=== PATIENT | female | born 1940 | race Caucasian/White ===

== ENCOUNTER 2020-06-21 20:00 | Outpatient (CLI) | payer MEDICARE, MEDICAID, SELFPAY | END 2020-06-21 20:01 | disposition home or self-care (01) | LOC: SLEEP 06-22 11:40 | PROVIDERS: Family Provider Family Medicine; Visit Provider Nurse Practitioner | DX: G47.33 Obstructive sleep apnea (adult) (pediatric) (principal) | CPT/HCPCS: 95810 ==

== ENCOUNTER 2020-08-13 16:04 | Emergency (ER) | payer MEDICARE, MEDICAID, SELFPAY ==
[2020-08-13 16:18] VITALS: BP 159/95; PULSE 72; RESP 14; TEMP 36.6; O2SAT 97; BMI 47.7
[2020-08-13 18:04] VITALS: BP 172/75; PULSE 68; PULSE 73; RESP 18; O2SAT 99
--- NOTE | 2020-08-13 18:30 | W.ED.EXTPRO ---
HPI - Extremity Problem General: Chief complaint: Extremity Problem,Nontraumatic Stated complaint: BILATERAL LEG SWELLING Time Seen by Provider: 08/13/20 18:25 History of Present Illness: HPI Narrative: 89-year-old female patient presents to the emergency department with several week onset of bilateral lower extremity edema with redness, she now reports little blisters that have formed to the lower legs. She reports placed on oxygen approximately 6 months ago due to low oxygen level. Recently seen by her primary care provider recently started on metformin. She reports leg elevation helps, swelling resolves. She denies fever chills, denies complaints of chest pain, reports increased shortness of breath past several weeks. MD Complaint: extremity pain and extremity swelling Onset (ago): week(s) (2) Pain Consistency: intermittent Location: lower extremity Quality: aching Radiation: none Relieving factors: elevation Exacerbating factors: weight bearing and walking Associated symptoms: Reports short of breath; Deny chest pain, fever(s) or rash Review of Systems General: Reports: 10 or more systems reviewed and unremarkable except in HPI and below Const: Denies: fever(s), chills or diaphoresis Eyes: Denies: blurry vision or eye redness ENMT: Denies: throat pain, dental pain or disequilibrium Card: Reports: swelling of feet/ankles, dyspnea on exertion and orthopnea; Denies: chest pain, palpitations or irregular heart rhythm Resp: Reports: dyspnea and non-productive cough (chronic); Denies: productive cough or wheezing GI: Denies: abdominal pain, nausea or vomiting : Denies: difficulty voiding or dysuria Musc: Denies: back pain Skin/Breast: Denies: rash or pruritus Neuro: Denies: headache(s), weakness in extremities or behavioral changes Tony/Lymph: Denies: easy bruising Physical Exam Const: COMMON NORMALS: patient oriented x3 and alert EXAM LIMITATIONS: physical limitations (morbid obesity) GENERAL APPEARANCE: cooperative, frail appearing and well hydrated NUTRITIONAL APPEARANCE: obese ORIENTATION/CONSCIOUSNESS: Yes awake, Yes oriented to person and Yes oriented to place HENMT: COMMON NORMALS: normocephalic, Normal external nose present and moist oral mucous membranes HEAD & SCALP: normocephalic FACE & SINUS: normal facial exam NOSE: Normal external nose present Eye: COMMON NORMALS: Equal, round and reactive pupils present and EOMs intact bilaterally GENERAL EYE: appearance normal, both eyes and all related structures PUPIL: Yes Equal, round and reactive pupils present Neck/C-Spine: COMMON NORMALS: full ROM and no lymphadenopathy GENERAL: Yes normal visual inspection and Yes trachea midline CERVICAL SPINE: Yes cervical ROM normal Lymph: LYMPHATIC: no lymphadenopathy noted Chest: COMMONS NORMALS: normal inspection of the chest Resp: COMMON NORMALS: clear to auscultation bilaterally EFFORT & INSPECTION: Yes able to speak in complete sentences, Yes symmetric chest movement and Yes tachypneic AUSCULTATION: clear to auscultation bilaterally and diminished lung sounds bilateral Cardio: COMMON NORMALS: regular rhythm, S1 normal heart sound present and S2 normal heart sound present RHYTHM: regular rhythm HEART SOUNDS: S1 normal heart sound present and S2 normal heart sound present GI: COMMON NORMALS: Soft to palpation and non-tender INSPECTION: Yes normal to inspection PALPATION: Yes Soft to palpation : COMMON NORMALS: Yes no CVA tenderness BLADDER/KIDNEY EXAM: Yes no CVA tenderness Back/Pelvis: COMMON NORMALS: no CVA tenderness and thoracic and lumbar spine normal to inspection Extremity: COMMON NORMALS: normal to inspection and capillary refill normal GENERAL: Yes normal exam except as noted RIGHT LOWER EXTREMITY: Yes lower leg (erythema with small pustules - negative wheeping) LEFT LOWER EXTREMITY: Yes lower leg Left lower leg: Yes inspection (erythema with small pustules, negative wheeping) Neuro: COMMON NORMALS: patient oriented x3 and no focal motor deficits SENSORIUM/ORIENTATION: Yes alert, Yes oriented to person and Yes oriented to place Psych: COMMON NORMALS: mental status grossly normal, Normal thought process present and cooperative ACTIVITY/MOTOR BEHAVIOR: Yes appropriate eye contact THOUGHT PROCESS: Normal thought process present Skin: COMMON NORMALS: no rashes or lesions noted and turgor normal GENERAL SKIN EXAM: no rashes or lesions noted and turgor normal Course ED course: 79-year-old female patient presents to the emergency department with bilateral lower extremity edema and erythema. Chest x-ray revealed vascular congestion, she was administered 40 mg of Lasix IV with 2000 cc diuresed. BNP was normal, cardiac enzymes did not reveal elevation on delta. White blood count was 11.2 thousand, slight hypo-natremia and hypo-chloride anemia noted prior to Lasix administration. EKG without acute abnormalities, she reports is hungry upon exam, agrees to keep her bilateral lower extremities elevated, she agrees to follow-up with her primary care physician this week for reevaluation. She remains on doxycycline for rosacea. Doxycycline on hold until completion of cephalexin. Patient was educated on necessity to keep legs elevated and low-sodium diet. Vital Signs: Vital signs: Vital Signs Temperature 97.8 F 08/13/20 16:18 Pulse Rate 69 08/13/20 19:03 Respiratory Rate 22 H 08/13/20 19:03 Blood Pressure 172/75 08/13/20 19:03 Pulse Oximetry 98 08/13/20 19:03 MDM - Extremity (Nontraumatic) Lab Data: Labs: Lab Results 08/13/20 08/13/20 08/13/20 Range/Units 08:43 18:53 18:53 WBC 11.2 H (4.0-10.0) 10^3/ uL RBC 5.02 (4.1-5.3) 10^6/u L Hgb 14.5 (11.5-15.3) g/dL Hct 46.9 (37.0-47.0) % MCV 93.4 (81-99) fL MCH 28.9 (28.0-34.0) pg MCHC 30.9 (30.0-36.0) g/dL RDW 13.2 (12.1-15.1) % Plt Count 374 (130-400) 10^3/c mm MPV 10.5 H (7.4-10.4) fL Neut % (Auto) 65.9 % Lymph % (Auto) 21.0 % [place] % (Auto) 9.9 % Eos % (Auto) 1.8 % Baso % (Auto) 0.7 % Neut # (Auto) 7.35 (1.8-7.7) 10^3/u L Lymph # (Auto) 2.3 (0.8-4.8) 10^3/u L [place] # (Auto) 1.1 H (0.2-0.9) 10^3/u L Eos # (Auto) 0.2 (0.0-0.8) 10^3/u L Baso # (Auto) 0.1 (0.0-0.1) 10^3/u L Nucleated RBC % (a uto) 0 % Nucleated RBCs # 0.0 /100WBC PT 12.70 (12.1-14.9) SECO NDS INR 0.95 (0.8-1.2) Sodium (136-145) mmol/L Potassium (3.5-5.1) mmol/L Chloride (98-107) mmol/L Carbon Dioxide (22-29) mmol/L Anion Gap (5-19) BUN (8-23) mg/dL Creatinine (0.5-0.9) mg/dL GFR Calculation Glucose (65-115) mg/dL Calculated Osmolal ity (285-295) mOsm/k g Calcium (8.5-10.5) mg/dL Total Bilirubin (0.15-1.2) mg/dL AST (0-32) U/L ALT (0-33) U/L Alkaline Phosphata se (35-105) IU/L Troponin T Baselin e (0-10) ng/L Troponin T 120 Min [place] (0-10) ng/L Delta Troponin T (0-10) ABS# NT-Pro-B Natriuret Pep (0-450) pg/mL Total Protein (6.6-8.7) g/dL Albumin (3.5-5.2) g/dL Globulin (1.3-4.6) g/dL Urine Color Yellow (Yellow) Urine Appearance Cloudy (CLEAR) Urine pH 7 (5-7) Ur Specific Gravit y 1.015 (1.005-1.030) Urine Protein Neg (Negative) Urine Glucose (UA) Norm (Normal) Urine Ketones Negative (Negative) Urine Blood Neg (Negative) Urine Nitrate Negative (Negative) Urine Bilirubin Neg (Negative) Urine Urobilinogen Norm (Negative) mg/dL Ur Leukocyte Cass[place] a[place] Trace H (Negative) Urine RBC Rare (0-2) /hpf Urine WBC Rare (0-5) /hpf Ur Squamous Epith Cells Rare (0-5) /hpf Amorphous Sediment Not Reportable Urine Bacteria 1+ H (NONE) /hpf 08/13/20 08/13/20 08/13/20 Range/Units 18:53 18:53 21:23 WBC (4.0-10.0) 10^3/ uL RBC (4.1-5.3) 10^6/u L Hgb (11.5-15.3) g/dL Hct (37.0-47.0) % MCV (81-99) fL MCH (28.0-34.0) pg MCHC (30.0-36.0) g/dL RDW (12.1-15.1) % Plt Count (130-400) 10^3/c mm MPV (7.4-10.4) fL Neut % (Auto) % Lymph % (Auto) % [place] % (Auto) % Eos % (Auto) % Baso % (Auto) % Neut # (Auto) (1.8-7.7) 10^3/u L Lymph # (Auto) (0.8-4.8) 10^3/u L [place] # (Auto) (0.2-0.9) 10^3/u L Eos # (Auto) (0.0-0.8) 10^3/u L Baso # (Auto) (0.0-0.1) 10^3/u L Nucleated RBC % (a uto) % Nucleated RBCs # /100WBC PT (12.1-14.9) SECO NDS INR (0.8-1.2) Sodium 131 L (136-145) mmol/L Potassium 4.6 (3.5-5.1) mmol/L Chloride 90 L (98-107) mmol/L Carbon Dioxide 29 (22-29) mmol/L Anion Gap 16.6 (5-19) BUN 17 (8-23) mg/dL Creatinine 0.7 (0.5-0.9) mg/dL GFR Calculation Not Reportable Glucose 142 H (65-115) mg/dL Calculated Osmolal ity 271 L (285-295) mOsm/k g Calcium 10.1 (8.5-10.5) mg/dL Total Bilirubin 0.5 (0.15-1.2) mg/dL AST 23 (0-32) U/L ALT 17 (0-33) U/L Alkaline Phosphata se 95 (35-105) IU/L Troponin T Baselin e 18 H (0-10) ng/L Troponin T 120 Min [place] 17.74 H (0-10) ng/L Delta Troponin T -0.26 L (0-10) ABS# NT-Pro-B Natriuret Pep 147 (0-450) pg/mL Total Protein 6.9 (6.6-8.7) g/dL Albumin 4.1 (3.5-5.2) g/dL Globulin 2.8 (1.3-4.6) g/dL Urine Color (Yellow) Urine Appearance (CLEAR) Urine pH (5-7) Ur Specific Gravit y (1.005-1.030) Urine Protein (Negative) Urine Glucose (UA) (Normal) Urine Ketones (Negative) Urine Blood (Negative) Urine Nitrate (Negative) Urine Bilirubin (Negative) Urine Urobilinogen (Negative) mg/dL Ur Leukocyte Cassy ase (Negative) Urine RBC (0-2) /hpf Urine WBC (0-5) /hpf Ur Squamous Epith Cells (0-5) /hpf Amorphous Sediment Urine Bacteria (NONE) /hpf Imaging Data^: Other Xray: Radiologist's impression: [place] [address] XRay Report Signed Patient: Camryn Bocanegra #: [id number] : 1940Acct#:[id number] Age/Sex: 79 / FADM Date: 08/13/20 Loc: ERRoom/Bed: Attending Dr: Ordering Provider/Ordering MD: Terrie Biswas Date of Service: 08/13/20 Procedure(s): XR chest 1V portable [id number] Accession Number(s): [id number] Report Number: [id number] WS: [id number] EXAM: AP CHEST: PORTABLE UPRIGHT DATE OF EXAM: 08/13/2020, 1839 hours COMPARISON: NONE HISTORY: Patient is 79 years old with shortness of breath and occasional cough. FINDINGS: The cardiac silhouette is slightly enlarged. The mediastinal contours are normal. The pulmonary vascularity is prominent. How much of this has to do with body habitus is uncertain. Not convinced of definite pulmonary edema. Some patchy infiltrate in the left mid and lower chest. Right lung appears clear. There is no effusion or pneumothorax. No acute bony abnormality is seen. Surgical clips in the left axillary region. XR/XR chest 1V portable [id number] IMPRESSION: Pulmonary vascular congestion. Patchy infiltrate left mid and lower chest. Dictated By:Jose Alfredo Washington MD Signed By:Jose Alfredo Washington MDSigned Date/Time:08/13/201900 DD/ 1859 EKG Data^: EKG 1: EKG interpretation date: 08/13/20 EKG interpretation time: 21:49 Other EKG comments: Sinus rhythm with occasional ventricular premature complexes, incomplete right bundle branch block, left ventricular hypertrophy, possible anterior myocardial infarction, probable old, abnormal EKG Discharge Plan Discharge Patient Disposition: Home Clinical Impression: Pulmonary vascular congestion, Leg edema Cellulitis Qualifiers: Site of cellulitis: extremity Site of cellulitis of extremity: lower extremity Laterality: unspecified laterality Qualified Code(s): L03.119 - Cellulitis of unspecified part of limb Condition: Stable Prescriptions: New furosemide 40 mg tablet 40 mg PO DAILY Qty: 3 RF: 0 Held doxycycline hyclate 100 mg capsule 100 mg PO DAILY RF: 0 Hold Instructions: Resume on 08/24/20. hold while taking Keflex Discontinued ibuprofen 800 mg tablet 800 mg PO TID RF: 0 No Action Multiple Vitamins Tablet 1 tab PO DAILY RF: 0 Vitamin B-12 1,000 mcg Tablet 1,000 mcg PO DAILY RF: 0 aspirin 81 mg Tablet,Delayed Release (Dr/Ec) 81 mg PO DAILY RF: 0 Tylenol Extra Strength 500 mg Tablet 500 - 1,000 mg PO PRN RF: 0 Benadryl 25 mg Capsule See Rx Instructions .ROUTE .COMPLEX RF: 0 Nitrostat 0.4 mg Tablet, Sublingual 0.4 mg SUBLINGUAL Q5M PRN (Reason: Chest Pain) RF: 0 Vitamin D3 25 mcg (1,000 unit) Tablet 25 mcg PO DAILY RF: 0 Stool Softener 2 cap PO BID RF: 0 scacbtl-lcufbprxv-yfql 1 tab PO DAILY RF: 0 metformin 500 mg tablet 500 mg PO QPM RF: 0 metoprolol succinate 50 mg tablet extended release 24 hr 50 mg PO DAILY RF: 0 potassium chloride 10 mEq tablet extended release 10 meq PO BID RF: 0 chlorthalidone 25 mg tablet 25 mg PO DAILY RF: 0 oxybutynin chloride 5 mg tablet 5 mg PO QID RF: 0 losartan 100 mg tablet 100 mg PO DAILY RF: 0 Discharge Orders: Discharge Order (Routine); Ordered 08/13/20 Ordered By: Terrie Biswas Referrals: Owen Kee Jr, MD [Family Provider] - Discharge Diet: Cardiac Discharge Activity: Limit activity as instructed Patient Instructions: Cellulitis (ED), Leg Edema (ED) Activity Restrictions/Additional Instructions: Follow-up with your primary care physician in 3 to 4 days Take Lasix 40 mg daily for 3 days, this will increase her urine output, may cause urinary incontinence Increase potassium to 10 mEq twice daily due to Lasix use Hold doxycycline until cephalexin has been completed Keep legs elevated at all times, this will help to decrease swelling Blister formation will resolve as the swelling goes down Return to the emergency department if you develop fever, chest pain, worsening shortness of breath Coding Level of Care Code ED Imaging Clerk for [facility] Exam Comprehensive
--- NOTE | 2020-08-13 18:32 | XR_ITS ---
WS: [id number] EXAM: AP CHEST: PORTABLE UPRIGHT DATE OF EXAM: 08/13/2020, 1839 hours COMPARISON: NONE HISTORY: Patient is 79 years old with shortness of breath and occasional cough. FINDINGS: The cardiac silhouette is slightly enlarged. The mediastinal contours are normal. The pulmonary vascularity is prominent. How much of this has to do with body habitus is uncertain. Not convinced of definite pulmonary edema. Some patchy infiltrate in the left mid and lower chest. Right lung appear s clear. There is no effusion or pneumothorax. No acute bony abnormality is seen. Surgical clips i n the left axillary region. XR/XR chest 1V portable [id number] IMPRESSION: Pulmonary vascular congestion. Patchy infiltrate left mid and lower chest.
[2020-08-13 19:03] VITALS: BP 172/75; PULSE 69; RESP 22; O2SAT 98
--- NOTE | 2020-08-13 20:38 | ECG_ITS ---
[facility] Test Date: 2020-08-13 Pat Name: Camryn Bocanegra Department: Room: Gender: Female Strategy Manager: : 1940 Requested By: Terrie Tracy Order Number: [id number] Evan MD: Leatha Gonzalez M.D. Measurements Intervals [place] Rate: 70 P: 48 VT: 158 QRS: -24 QRSD: 96 T: 29 QT: 387 QTc: 418 Interpretive Statements SINUS RHYTHM WITH OCCASIONAL VENTRICULAR PREMATURE COMPLEXES LOW QRS VOLTAGE IN PRECORDIAL LEADS [QRS DEFLECTION < 1.0 mV IN CHEST LEADS] INCOMPLETE RIGHT BUNDLE BRANCH BLOCK [90+ ms QRS DURATION, TERMINAL R IN V1/V2, 40+ ms S IN I/aVL/V4/V5/V6] LEFT VENTRICULAR HYPERTROPHY AND ST-T CHANGE [VOLTAGE CRITERIA PLUS ST/T ABNORMALITY] POSSIBLE ANTERIOR MYOCARDIAL INFARCTION , PROBABLY OLD [30 ms Q WAVE IN V3/V4, OR R < 0.2 mV IN V4] No previous ECG available for comparison Electronically Signed On 08-14-2020 14:49:39 CDT by Leatha Gonzalez M.D. [email or web address]
[2020-08-13] MEDS: FUROsemide 10 mg/mL SDV 4mL 40 MG IVP (20:58)
[2020-08-13 21:08] LABS: Basophils # 0.1 10^3/uL (0.0-0.1); Basophils % 0.7 %; Eosinophils # 0.2 10^3/uL (0.0-0.8); Eosinophils % 1.8 %; Hematocrit 46.9 % (37.0-47.0); Hemoglobin 14.5 g/dL (11.5-15.3); Lymphocytes # 2.3 10^3/uL (0.8-4.8); Mean Corpuscular HGB Conc 30.9 g/dL (30.0-36.0); Mean Corpuscular Hemoglobin 28.9 pg (28.0-34.0); Mean Corpuscular Volume 93.4 fL (81-99); Mean Platelet Volume 10.5 fL (7.4-10.4); Monocytes # 1.1 10^3/uL (0.2-0.9); Monocytes % 9.9 %; Neutrophils # 7.35 10^3/uL (1.8-7.7); Neutrophils % 65.9 %; Nucleated Red Blood Cells % 0 %; Platelet Count 374 10^3/cmm (130-400); Red Blood Count 5.02 10^6/uL (4.1-5.3); Red Cell Distribution Width 13.2 % (12.1-15.1); White Blood Count 11.2 10^3/uL (4.0-10.0)
[2020-08-13 21:32] LABS: Troponin(5th) Baseline 18 ng/L (0-10)
[2020-08-13 21:41] LABS: Alanine Aminotransferase 17 U/L (0-33); Albumin Level 4.1 g/dL (3.5-5.2); Alkaline Phosphatase 95 IU/L (35-105); Aspartate Amino Transferase 23 U/L (0-32); Blood Urea Nitrogen 17 mg/dL (8-23); Calcium 10.1 mg/dL (8.5-10.5); Carbon Dioxide 29 mmol/L (22-29); Chloride 90 mmol/L (98-107); Globulin 2.8 g/dL (1.3-4.6); Glucose 142 mg/dL (65-115); NT Pro B Type Natriuretic Pept 147 pg/mL (0-450); Osmolality Calculated 271 mOsm/kg (285-295); Sodium 131 mmol/L (136-145); Total Bilirubin 0.5 mg/dL (0.15-1.2); Total Protein 6.9 g/dL (6.6-8.7)
[2020-08-13 21:43] LABS: Anion Gap 16.6 (5-19); Potassium 4.6 mmol/L (3.5-5.1)
[2020-08-13 21:52] LABS: Troponin 5 2HR 17.74 ng/L (0-10)
[2020-08-13 21:57] LABS: Troponin 5 2HR Delta -0.26 ABS# (0-10)
[2020-08-13 21:59] LABS: INR 0.95 (0.8-1.2)
[2020-08-13] MEDS: acetaminophen 500 mg Tablet 1000 MG PO (22:13)
[2020-08-13 22:35] LABS: Add Urine Microscopic? YES; Bacteria Urine 1+ /hpf; Bilirubin Urine Neg (Negative); Blood Urine Neg (Negative); Glucose Urine UA Norm (Normal); Ketones Urine Negative (Negative); Leukocyte Esterase Urine Trace (Negative); Nitrate Urine Negative (Negative); Protein Urine Neg (Negative); RBC Urine RARE /hpf (0-2); Specific Gravity, Urine 1.015 (1.005-1.030); Squamous Epithelial Cell Urine RARE /hpf (0-5); Urine Appearance Cloudy (CLEAR); Urine Color Yellow (Yellow); Urobilinogen Urine Norm (Negative); WBC Urine RARE /hpf (0-5); pH Urine 7 (5-7)
[2020-08-13] MEDS: cephALEXin 500 mg Capsule PO (23:10)
[2020-08-14 04:14] VITALS: BP 147/65; PULSE 78; RESP 18; O2SAT 96
== END 2020-08-13 23:45 | disposition home or self-care (01) ==
PROVIDERS: Emergency Medicine; Emergency Provider Nurse Practitioner Family; Family Provider Family Medicine
DX: R60.0 Localized edema (principal); L03.119 Cellulitis of unspecified part of limb; Z79.82 Long term (current) use of aspirin; R09.89 Other specified symptoms and signs involving the circulatory and respiratory systems
CPT/HCPCS: 12345; 71045; 80053; 81001; 83880; 84484; 85025; 85610; 93005; 96374; 99283; 99284; J1940

== ENCOUNTER 2020-08-25 19:54 | Emergency (ER) | payer MEDICARE, MEDICAID, SELFPAY ==
[2020-08-25 20:09] VITALS: BP 153/72; PULSE 77; RESP 14; TEMP 36.9; O2SAT 95; BMI 48.5
--- NOTE | 2020-08-25 20:38 | W.ED.EXTPRO ---
HPI - Extremity Problem General: Chief complaint: Extremity Problem,Nontraumatic Stated complaint: cellulitis/on back left leg Time Seen by Provider: 08/25/20 20:17 History of Present Illness: HPI Narrative: Patient is a 79-year-old female comes to the ED with cellulitis on back of right leg and bilateral leg edema. Bilateral leg edema cellulitis started on August 03. Patient was seen here in the ED August 13 for same complaint. She was on doxycycline for cellulitis but yesterday her wound culture came back and told her to stop doxycycline and put her on ciprofloxacin. Patient says she just started taking the ciprofloxacin within the last 24 hours. She says she is also been seen by the edema. Patient says the sore on the posterior side of her right lower leg has gone patient is itching out clear and yellow puslike fluid on occasion. Patient says cellulitis does cause some pain in her legs and she took Tylenol before coming to the ED. Associated symptoms: Deny chest pain, fever(s) or rash Review of Systems Const: Denies: fever(s), chills or fatigue Eyes: Denies: change in vision or eye discomfort ENMT: Denies: throat pain, odynophagia, nasal discharge or nasal congestion Card: Denies: chest pain, palpitations, edema, swelling of feet/ankles, dyspnea on exertion or orthopnea Resp: Denies: dyspnea, productive cough or non-productive cough GI: Denies: abdominal pain, nausea, vomiting, diarrhea, constipation or hematochezia : Denies: flank pain, dysuria or hematuria Musc: Denies: neck pain, back pain or extremity swelling Skin/Breast: Reports: erythema, skin tenderness, sores and new lesions; Denies: rash Neuro: Denies: headache(s), numbness in extremities or weakness in extremities Physical Exam Const: COMMON NORMALS: no acute distress and patient oriented x3 GENERAL APPEARANCE: cooperative and comfortable HENMT: COMMON NORMALS: normocephalic HEAD & SCALP: normocephalic MOUTH: Normal oral and palatal mucosa present THROAT: posterior oropharynx normal and uvula midline Neck/C-Spine: COMMON NORMALS: supple GENERAL: Yes normal visual inspection Resp: COMMON NORMALS: normal respiratory effort, No retractions, No use of accessory muscles and clear to auscultation bilaterally AUSCULTATION: clear to auscultation bilaterally Cardio: COMMON NORMALS: regular rate, regular rhythm, S1 normal heart sound present, S2 normal heart sound present, No gallops present (Cardio), No clicks present (Cardio), No murmurs present (Cardio) and Peripheral pulses 2+ throughout RATE: regular rate RHYTHM: regular rhythm HEART SOUNDS: S1 normal heart sound present and S2 normal heart sound present PERIPHERAL PULSES: Peripheral pulses 2+ throughout and dorsalis pedis present positive bilateral 1+ GI: COMMON NORMALS: Normal to inspection, nondistended, normoactive bowel sounds present, Soft to palpation, non-tender and no masses PALPATION: Yes Soft to palpation : COMMON NORMALS: Yes no CVA tenderness BLADDER/KIDNEY EXAM: Yes no CVA tenderness Back/Pelvis: COMMON NORMALS: no CVA tenderness Extremity: NARRATIVE EXTREMITY EXAM: Bilateral 2+ pitting edema. Right lower extremity has erythema, warmth, tenderness and blisterlike lesion on posterior aspect of calf that is oozing clear purulent drainage. Patient appears to have cellulitis. GENERAL: Yes edema (2+ pitting edema of lower extremity bilaterally.) Neuro: COMMON NORMALS: patient oriented x3 and moves all extremities Skin: NARRATIVE SKIN EXAM: Bilateral 2+ pitting edema. Right lower extremity has erythema, warmth, tenderness and blisterlike lesion on posterior aspect of calf that is oozing clear purulent drainage. Patient appears to have cellulitis. GENERAL SKIN EXAM: dry skin Course Vital Signs: Vital signs: Vital Signs Temperature 98.4 F 08/25/20 20:09 Pulse Rate 64 08/25/20 23:03 Respiratory Rate 18 08/25/20 23:03 Blood Pressure 120/74 08/25/20 23:03 Pulse Oximetry 98 08/25/20 23:03 MDM - Extremity (Nontraumatic) MDM Narrative: Medical decision making narrative: Patient is a 79-year-old female comes to the ED with right lower extremity pain and cellulitis. Patient has been dealing with this complaint since August 03 and was taking doxycycline previously and just got switched to ciprofloxacin within the last 24 hours due to wound culture and susceptibility results. Physical exam shows cellulitis of the right lower extremity with 2+ pitting edema and lower extremities bilaterally. White blood cell count 10.6. Patient was given IV vancomycin while here in the ED and I placed an order with case management for patient to be referred to wound care clinic. Patient was discharged after IV vanc and told to continue taking previously prescribed ciprofloxacin. I told patient that case management should be contacting them in the next several days to set up an appointment with wound care clinic. Return to ED precautions given. Patient understood and agreed with plan. Lab Data: Attestation: I reviewed the patient's lab results. Labs: Lab Results 08/25/20 08/25/20 Range/Units 21:03 21:03 WBC 10.6 H (4.0-10.0) 10^3/ uL RBC 4.82 (4.1-5.3) 10^6/u L Hgb 14.2 (11.5-15.3) g/dL Hct 45.6 (37.0-47.0) % MCV 94.6 (81-99) fL MCH 29.5 (28.0-34.0) pg MCHC 31.1 (30.0-36.0) g/dL RDW 13.5 (12.1-15.1) % Plt Count 371 (130-400) 10^3/c mm MPV 9.9 (7.4-10.4) fL Neut % (Auto) 68.0 % Lymph % (Auto) 17.1 % [place] % (Auto) 11.0 % Eos % (Auto) 2.5 % Baso % (Auto) 0.8 % Neut # (Auto) 7.22 (1.8-7.7) 10^3/u L Lymph # (Auto) 1.8 (0.8-4.8) 10^3/u L [place] # (Auto) 1.2 H (0.2-0.9) 10^3/u L Eos # (Auto) 0.3 (0.0-0.8) 10^3/u L Baso # (Auto) 0.1 (0.0-0.1) 10^3/u L Nucleated RBC % (a uto) 0 % Nucleated RBCs # 0.0 /100WBC Sodium 136 (136-145) mmol/L Potassium 4.0 (3.5-5.1) mmol/L Chloride 92 L (98-107) mmol/L Carbon Dioxide 36 H (22-29) mmol/L Anion Gap 12.0 (5-19) BUN 28 H (8-23) mg/dL Creatinine 1.0 H (0.5-0.9) mg/dL GFR Calculation Not Reportable Glucose 187 H (65-115) mg/dL Calculated Osmolal ity 292 (285-295) mOsm/k g Calcium 10.0 (8.5-10.5) mg/dL Total Bilirubin 0.4 (0.15-1.2) mg/dL AST 20 (0-32) U/L ALT 19 (0-33) U/L Alkaline Phosphata se 89 (35-105) IU/L Total Protein 7.1 (6.6-8.7) g/dL Albumin 4.0 (3.5-5.2) g/dL Globulin 3.1 (1.3-4.6) g/dL Discharge Plan Discharge Patient Disposition: Home Clinical Impression: Lower extremity edema Cellulitis Qualifiers: Site of cellulitis: extremity Site of cellulitis of extremity: lower extremity Laterality: right Qualified Code(s): L03.115 - Cellulitis of right lower limb Condition: Stable Prescriptions: No Action Multiple Vitamins Tablet 1 tab PO DAILY RF: 0 Vitamin B-12 1,000 mcg Tablet 1,000 mcg PO DAILY RF: 0 aspirin 81 mg Tablet,Delayed Release (Dr/Ec) 81 mg PO DAILY RF: 0 Tylenol Extra Strength 500 mg Tablet 500 - 1,000 mg PO PRN RF: 0 Benadryl 25 mg Capsule See Rx Instructions .ROUTE .COMPLEX RF: 0 Nitrostat 0.4 mg Tablet, Sublingual 0.4 mg SUBLINGUAL Q5M PRN (Reason: Chest Pain) RF: 0 Vitamin D3 25 mcg (1,000 unit) Tablet 25 mcg PO DAILY RF: 0 Stool Softener 2 cap PO BID RF: 0 isyfrva-dxrnwbmcp-mios 1 tab PO DAILY RF: 0 metformin 500 mg tablet 500 mg PO QPM RF: 0 doxycycline hyclate 100 mg capsule 100 mg PO DAILY RF: 0 Hold Instructions: Resume on 08/24/20. hold while taking Keflex metoprolol succinate 50 mg tablet extended release 24 hr 50 mg PO DAILY RF: 0 potassium chloride 10 mEq tablet extended release 10 meq PO BID RF: 0 chlorthalidone 25 mg tablet 25 mg PO DAILY RF: 0 oxybutynin chloride 5 mg tablet 5 mg PO QID RF: 0 losartan 100 mg tablet 100 mg PO DAILY RF: 0 furosemide 40 mg tablet 40 mg PO DAILY Qty: 3 RF: 0 Discharge Orders: Discharge Order (Routine); Ordered 08/25/20 Ordered By: Edwin Colby Referrals: Owen Kee Jr, MD [Primary Care Provider] - Discharge Diet: Regular Discharge Activity: Increase activity as tolerated Patient Instructions: Cellulitis (ED), Leg Edema (ED) Activity Restrictions/Additional Instructions: Follow-up with medical provider as directed in 7 to 10 days. Also case management will be contacting you next several days to set up an appointment with wound care clinic. Continue taking your previously prescribed antibiotic. Elevate legs to help with swelling. Continue all other home meds. Return to the ER or your medical provider if condition worsens. Please read and understand discharge instructions. If any questions, please ask. Discharge Date/Time: 08/25/20 23:05 Coding Level of Care Code ED Custodian Blood Bank for [facility] Hart Exam Comprehensive
[2020-08-25 21:24] LABS: Basophils # 0.1 10^3/uL (0.0-0.1); Basophils % 0.8 %; Eosinophils # 0.3 10^3/uL (0.0-0.8); Eosinophils % 2.5 %; Hematocrit 45.6 % (37.0-47.0); Hemoglobin 14.2 g/dL (11.5-15.3); Lymphocytes # 1.8 10^3/uL (0.8-4.8); Lymphocytes % 17.1 %; Mean Corpuscular HGB Conc 31.1 g/dL (30.0-36.0); Mean Corpuscular Hemoglobin 29.5 pg (28.0-34.0); Mean Corpuscular Volume 94.6 fL (81-99); Mean Platelet Volume 9.9 fL (7.4-10.4); Monocytes # 1.2 10^3/uL (0.2-0.9); Neutrophils # 7.22 10^3/uL (1.8-7.7); Nucleated Red Blood Cells % 0 %; Platelet Count 371 10^3/cmm (130-400); Red Blood Count 4.82 10^6/uL (4.1-5.3); Red Cell Distribution Width 13.5 % (12.1-15.1); White Blood Count 10.6 10^3/uL (4.0-10.0)
[2020-08-25 22:04] LABS: Alanine Aminotransferase 19 U/L (0-33); Alkaline Phosphatase 89 IU/L (35-105); Aspartate Amino Transferase 20 U/L (0-32); Blood Urea Nitrogen 28 mg/dL (8-23); Carbon Dioxide 36 mmol/L (22-29); Chloride 92 mmol/L (98-107); Globulin 3.1 g/dL (1.3-4.6); Glucose 187 mg/dL (65-115); Osmolality Calculated 292 mOsm/kg (285-295); Sodium 136 mmol/L (136-145); Total Bilirubin 0.4 mg/dL (0.15-1.2); Total Protein 7.1 g/dL (6.6-8.7)
[2020-08-25] MEDS: HYDROcodone-acetaminophen 5-325 mg Tablet 1 TAB PO (22:23)
[2020-08-25] MEDS: acetaminophen 325 mg Tablet 650 MG PO (22:24)
[2020-08-25 23:03] VITALS: BP 120/74; PULSE 64; RESP 18; O2SAT 98
--- NOTE | 2020-08-27 10:41 | DCPLANNER ---
district manager in training had message to schedule a follow up appointment for patient with Wound Care. district manager in training called the Wound Care clinic, spoke with Dottie, a follow up appointment was scheduled for Thursday, August 29, 2020 at 2:30 with Helen Amaya NP. district manager in training called patient and informed patient of the scheduled appointment. Patient stated that she would attend the appointment.
--- NOTE | 2020-09-10 09:37 | DCPLANNER ---
Patient had a follow up appointment scheduled for 08.29.20 with Wound Care - patient did attend appointment.
== END 2020-08-25 23:05 | disposition home or self-care (01) ==
PROVIDERS: Emergency Provider Physician Assistant; PCP Family Medicine
DX: L03.115 Cellulitis of right lower limb (principal); Z79.82 Long term (current) use of aspirin; Z79.84 Long term (current) use of oral hypoglycemic drugs
CPT/HCPCS: 12345; 36415; 80053; 85025; 87040; 96365; 99282; 99283; J3370; J7050

== ENCOUNTER 2020-08-29 14:26 | Outpatient (CLI) | payer MEDICARE, MEDICAID, SELFPAY | END 2020-08-29 14:27 | disposition home or self-care (01) | LOC: WOUND 14:26 | PROVIDERS: PCP Family Medicine; Visit Provider Nurse Practitioner Family | DX: L97.811 Non-pressure chronic ulcer of other part of right lower leg limited to breakdown of skin (principal) | CPT/HCPCS: G0463 ==

== ENCOUNTER 2020-09-05 13:53 | Outpatient (CLI) | payer MEDICARE, MEDICAID, SELFPAY | END 2020-09-05 13:54 | disposition home or self-care (01) | LOC: WOUND 13:54 | PROVIDERS: PCP Family Medicine; Visit Provider Thoracic Surgery (Cardiothoracic Vascular Surgery) | DX: E11.622 Type 2 diabetes mellitus with other skin ulcer (principal); L97.811 Non-pressure chronic ulcer of other part of right lower leg limited to breakdown of skin; L03.115 Cellulitis of right lower limb | CPT/HCPCS: 11042 ==

== ENCOUNTER 2020-09-12 10:52 | Outpatient (CLI) | payer MEDICARE, MEDICAID, SELFPAY | END 2020-09-12 10:53 | disposition home or self-care (01) | LOC: WOUND 10:55 | PROVIDERS: PCP Family Medicine; Visit Provider Nurse Practitioner Family | DX: E11.622 Type 2 diabetes mellitus with other skin ulcer (principal); L97.811 Non-pressure chronic ulcer of other part of right lower leg limited to breakdown of skin | CPT/HCPCS: G0463 ==

== ENCOUNTER 2020-09-19 10:40 | Outpatient (CLI) | payer MEDICARE, MEDICAID, SELFPAY ==
--- NOTE | 2020-09-19 10:46 | USCV_ITS ---
Camryn Bocanegra Age: 80 Gender: F : 1940 Exam Date: 09/19/2020 11:09 Ordering Phys: Helen Amaya Technologist: Deana Harper Exam Location: [facility] [place] Indication: HISTORY: Patient has history of ulcers. PROCEDURES: Bilateral duplex Venous Insufficiency study of the Deep and Superficial systems was carried out according to normal protocol with the patient in supine positon for deep system and dependent position for the superficial system. FINDINGS: There is no evidence of bilateral deep vein thrombosis. No evidence of superficial thrombosis in the bilateral saphenous system. No evidence of reflux was noted in the bilateral deep venous system. No venous reflux noted in the bilateral greater saphenous vein. No venous reflux noted in the bilateral small saphenous vein. Right GSV became to small to follow at the mid level. CONCLUSIONS No evidence of DVT in the above-mentioned identifiable veins. No significant venous reflux either in the superficial or deep venous system. The right greater saphenous vein at the distal segment and below-knee level were found to be extremely small, difficult to follow Dr Lacie Rockwell MD [facility] (Electronically Signed) Final Date: 20 September 2020 16:31 S
== END 2020-09-19 10:41 | disposition home or self-care (01) ==
LOC: US 10:44
PROVIDERS: PCP Nurse Practitioner; Visit Provider Nurse Practitioner Family
DX: L98.499 Non-pressure chronic ulcer of skin of other sites with unspecified severity (principal); M79.605 Pain in left leg; M79.604 Pain in right leg
CPT/HCPCS: 93970

== ENCOUNTER 2020-09-20 12:20 | Outpatient (CLI) | payer MEDICARE, MEDICAID, SELFPAY ==
--- NOTE | 2020-09-20 12:45 | USCV_ITS ---
Camryn Bocanegra Age: 80 Gender: F : 1940 Exam Date: 09/20/2020 12:16 Ordering Phys: Helen Amaya Technologist: Erin Vazquez [place] [facility] [place]: NON HEALING ULCER, PAIN, REDNESS RIGHT LEFT Brachial 161.00 mmHg Brachial 149.00 mmHg Pressure (mmHg) Waveform Pressure (mmHg) Waveform 220.00 POWER LINEMAN TECHNICIAN 204.00 220.00 DPA 169.00 Ankle/Brachial Index 1.05 162.00 Pre-Exercise Toe Pressure 175.00 1.01 Pre-Exercise Toe/Brachial Index 1.09 FINDINGS patient did not tolerate full pressure cuffs on legs. CHARLEE/TBI done only due to extreme leg pain with pressure cuffs. Supernormal resting CHARLEE on the right side Normal resting CHARLEE on the left side Normal resting TBIs bilaterally CONCLUSIONS No evidence of any significant arterial obstruction, based on the above findings. Dr Lacie Rockwell MD [facility] (Electronically Signed) Final Date: 20 September 2020 19:52 S
== END 2020-09-20 12:21 | disposition home or self-care (01) ==
PROVIDERS: PCP Nurse Practitioner; Visit Provider Nurse Practitioner Family
DX: L98.499 Non-pressure chronic ulcer of skin of other sites with unspecified severity (principal); M79.605 Pain in left leg; M79.604 Pain in right leg
CPT/HCPCS: 93923

== ENCOUNTER 2020-09-26 10:55 | Outpatient (CLI) | payer MEDICARE, MEDICAID, SELFPAY | END 2020-09-26 10:56 | disposition home or self-care (01) | LOC: WOUND 10:55 | PROVIDERS: PCP Nurse Practitioner; Visit Provider Thoracic Surgery (Cardiothoracic Vascular Surgery) | DX: E11.622 Type 2 diabetes mellitus with other skin ulcer (principal); L97.811 Non-pressure chronic ulcer of other part of right lower leg limited to breakdown of skin; L03.115 Cellulitis of right lower limb | CPT/HCPCS: 97597 ==

== ENCOUNTER 2020-10-03 10:43 | Outpatient (CLI) | payer MEDICARE, MEDICAID, SELFPAY | END 2020-10-03 10:44 | disposition home or self-care (01) | LOC: WOUND 10:44 | PROVIDERS: PCP Nurse Practitioner; Visit Provider Thoracic Surgery (Cardiothoracic Vascular Surgery) | DX: Z09 Encounter for follow-up examination after completed treatment for conditions other than malignant neoplasm (principal) | CPT/HCPCS: 99212; A6545 ==

== ENCOUNTER 2020-10-17 10:54 | Outpatient (CLI) | payer MEDICARE, MEDICAID, SELFPAY | END 2020-10-17 10:55 | disposition home or self-care (01) | LOC: WOUND 10:55 | PROVIDERS: PCP Nurse Practitioner; Visit Provider Nurse Practitioner Family | DX: Z09 Encounter for follow-up examination after completed treatment for conditions other than malignant neoplasm (principal) | CPT/HCPCS: 99212 ==

== ENCOUNTER 2020-10-23 16:06 | Outpatient (CLI) | payer MEDICARE, MEDICAID, SELFPAY | END 2020-10-23 16:07 | disposition home or self-care (01) | LOC: WOUND 16:08 | PROVIDERS: PCP Nurse Practitioner; Visit Provider Nurse Practitioner Family | DX: Z09 Encounter for follow-up examination after completed treatment for conditions other than malignant neoplasm (principal) | CPT/HCPCS: 29581 ==

== ENCOUNTER 2020-10-31 11:06 | Inpatient (IN) | payer MEDICARE, MEDICAID, SELFPAY ==
[2020-10-31] VITALS (14 sets, daily range): BP systolic 88–147; BP diastolic 56–98; PULSE 84–117; RESP 18–32; TEMP 36.4–37; O2SAT 82–98; BMI 47.3
--- NOTE | 2020-10-31 11:19 | ECG_ITS ---
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 Measurements Intervals [place] Rate: 96 P: 55 ID: [id number] QRS: -14 QRSD: 125 T: 27 QT: 362 QTc: 459 Interpretive Statements SINUS RHYTHM WITH OCCASIONAL VENTRICULAR PREMATURE COMPLEXES POSSIBLE RIGHT VENTRICULAR CONDUCTION DELAY [RSR (QR) IN V1/V2] POSSIBLE ANTERIOR MYOCARDIAL INFARCTION , OF INDETERMINATE AGE [30 ms Q WAVE IN V3/V4, OR R < 0.2 mV IN V4] Compared to ECG 08/13/2020 21:44:36 Incomplete right bundle-branch block no longer present Left ventricular hypertrophy no longer present ST (T wave) deviation no longer present Myocardial infarct finding still present Electronically Signed On 10-31-2020 18:21:17 DIRECTOR MEDICAID by Leatha Gonzalez M.D. [id number]
--- NOTE | 2020-10-31 11:19 | XR_ITS ---
WS: [id number] Portable AP upright chest, 10/31/2020 Clinical Data: sob Comparison: Portable chest, 08/13/2020. Findings: The patchy opacities in both lungs remain unchanged. The heart is enlarged. The aortic arch and descending aorta show calcification and tortuosity. No pneumothorax is present. There are radiop aque clips in the left axilla. There are monitor leads on the chest wall. XR/XR chest 1V portable [id number] Impression: 1. Bilateral patchy opacities in both lower lobes which may represent chronic i nterstitial change or acute pneumonia. 2. Atherosclerosis and cardiomegaly.
--- NOTE | 2020-10-31 11:23 | ED_ITS ---
HPI - COVID General: Chief Complaint: COVID symptoms Stated Complaint: covid sypmtoms/appetite loss Time Seen by Provider: 10/31/20 11:13 Source: patient Mode of arrival: ambulatory Limitations: no limitations Triage information: Has fever, cough or shortness of breath . No known COVID + exposure last 14 days History of Present Illness: HPI Narrative: 80-year-old female states she has a history of heart failure and is on 2 L of oxygen baseline. Patient states she started having increasing shortness of breath this morning. She states she had increased swelling in her legs. Patient here is requiring 6 L of oxygen to keep her above 90%. She had a slight cough denies any fever. COVID 19 common symptoms: positive dyspnea; negative fever(s), chills, body aches, headache(s), throat pain, nausea, vomiting or diarrhea COVID 19 other sytmptoms: negative chest pain COVID Results: SARS-CoV-2 Antigen (Rapid) Negative (Negative) 10/31/20 11:56 10/31/20 Review of Systems Const: Denies: fever(s), chills, body aches or change in appetite Eyes: Denies: blurry vision or eye discomfort ENMT: Denies: throat pain or dental pain Card: Denies: chest pain Resp: Reports: dyspnea GI: Denies: abdominal pain, nausea, vomiting or diarrhea : Denies: dysuria Musc: Denies: neck pain or back pain Skin/Breast: Denies: rash Neuro: Denies: headache(s) Psych: Denies: depression Tony/Lymph: Denies: easy bruising All/Imm: Denies: urticaria Physical Exam Const: COMMON NORMALS: no acute distress, patient oriented x3 and healthy appearing HENMT: COMMON NORMALS: normocephalic and atraumatic HEAD & SCALP: normocephalic and atraumatic Eye: COMMON NORMALS: Equal, round and reactive pupils present and EOMs intact bilaterally PUPIL: Yes Equal, round and reactive pupils present Neck/C-Spine: COMMON NORMALS: full ROM and supple Chest: COMMONS NORMALS: normal inspection of the chest and normal palpation of entire chest wall Resp: COMMON NORMALS: normal respiratory effort, No retractions, No use of accessory muscles and clear to auscultation bilaterally AUSCULTATION: clear to auscultation bilaterally Cardio: COMMON NORMALS: regular rate, regular rhythm and No murmurs present (Cardio) RATE: regular rate RHYTHM: regular rhythm GI: COMMON NORMALS: Normal to inspection, nondistended, normoactive bowel sounds present, Soft to palpation, non-tender and no masses PALPATION: Yes Soft to palpation Extremity: COMMON NORMALS: normal to inspection and full ROM OTHER: bilateral lower ext edema Neuro: COMMON NORMALS: patient oriented x3, moves all extremities and no focal motor deficits Psych: COMMON NORMALS: mental status grossly normal, Normal thought process present and cooperative THOUGHT PROCESS: Normal thought process present Skin: COMMON NORMALS: no rashes or lesions noted and no wounds GENERAL SKIN EXAM: no rashes or lesions noted Course Vital Signs: Vital signs: Vital Signs Temperature 98.3 F 10/31/20 11:16 Pulse Rate 95 10/31/20 13:57 Respiratory Rate 21 H 10/31/20 13:57 Blood Pressure 123/78 10/31/20 13:57 Pulse Oximetry 95 10/31/20 13:57 MDM - COVID MDM Narrative: Medical decision making narrative: Patient presents with CHF exacerbation along with likely pneumonia. Patient was quite dyspneic when she arrived and had some hypercarbia. She was placed on BiPAP and is doing much better. Patient started on IV antibiotics along with Lasix. I spoke to the hospitalist will admit to the cardiac stepdown. Lab Data: Labs: Lab Results 10/31/20 10/31/20 10/31/20 Range/Units 11:56 11:56 11:56 WBC 16.3 H (4.0-10.0) 10^3/ uL RBC 4.71 (4.1-5.3) 10^6/u L Hgb 14.1 (11.5-15.3) g/dL Hct 46.6 (37.0-47.0) % MCV 98.9 (81-99) fL MCH 29.9 (28.0-34.0) pg MCHC 30.3 (30.0-36.0) g/dL RDW 15.8 H (12.1-15.1) % Plt Count 362 (130-400) 10^3/c mm MPV 10.3 (7.4-10.4) fL Neut % (Auto) 82.7 % Lymph % (Auto) 6.1 % [place] % (Auto) 9.8 % Eos % (Auto) 0.1 % Baso % (Auto) 0.5 % Neut # (Auto) 13.50 H (1.8-7.7) 10^3/u L Lymph # (Auto) 1.0 (0.8-4.8) 10^3/u L [place] # (Auto) 1.6 H (0.2-0.9) 10^3/u L Eos # (Auto) 0.0 (0.0-0.8) 10^3/u L Baso # (Auto) 0.1 (0.0-0.1) 10^3/u L Nucleated RBC % (a uto) 0 % Nucleated RBCs # 0.0 /100WBC PT 14.30 (12.1-14.9) SECO NDS INR 1.07 (0.8-1.2) Fibrinogen 375 (174-498) mg/dL Sodium 140 (136-145) mmol/L Potassium 4.5 (3.5-5.1) mmol/L Chloride 93 L (98-107) mmol/L Carbon Dioxide 38 H (22-29) mmol/L Anion Gap 13.5 (5-19) BUN 46 H (8-23) mg/dL Creatinine 1.2 H (0.5-0.9) mg/dL GFR Calculation Not Reportable Glucose 341 H (65-115) mg/dL Calculated Osmolal ity 315 H (285-295) mOsm/k g Lactic Acid (0.5-2.2) mmol/L Calcium 10.6 H (8.5-10.5) mg/dL Total Bilirubin 0.7 (0.15-1.2) mg/dL AST 29 (0-32) U/L ALT 33 (0-33) U/L Alkaline Phosphata se 96 (35-105) IU/L C-Reactive Protein 17.5 H (0.0-4.9) mg/L NT-Pro-B Natriuret Pep 7129 H (0-450) pg/mL Total Protein 6.7 (6.6-8.7) g/dL Albumin 4.0 (3.5-5.2) g/dL Globulin 2.7 (1.3-4.6) g/dL Influenza Type A A g (Negative) Influenza Type B A g (Negative) SARS-CoV-2 Ag (Rap id) (Negative) 10/31/20 10/31/20 10/31/20 Range/Units 11:56 11:56 11:56 WBC (4.0-10.0) 10^3/ uL RBC (4.1-5.3) 10^6/u L Hgb (11.5-15.3) g/dL Hct (37.0-47.0) % MCV (81-99) fL MCH (28.0-34.0) pg MCHC (30.0-36.0) g/dL RDW (12.1-15.1) % Plt Count (130-400) 10^3/c mm MPV (7.4-10.4) fL Neut % (Auto) % Lymph % (Auto) % [place] % (Auto) % Eos % (Auto) % Baso % (Auto) % Neut # (Auto) (1.8-7.7) 10^3/u L Lymph # (Auto) (0.8-4.8) 10^3/u L [place] # (Auto) (0.2-0.9) 10^3/u L Eos # (Auto) (0.0-0.8) 10^3/u L Baso # (Auto) (0.0-0.1) 10^3/u L Nucleated RBC % (a uto) % Nucleated RBCs # /100WBC PT (12.1-14.9) SECO NDS INR (0.8-1.2) Fibrinogen (174-498) mg/dL Sodium (136-145) mmol/L Potassium (3.5-5.1) mmol/L Chloride (98-107) mmol/L Carbon Dioxide (22-29) mmol/L Anion Gap (5-19) BUN (8-23) mg/dL Creatinine (0.5-0.9) mg/dL GFR Calculation Glucose (65-115) mg/dL Calculated Osmolal ity (285-295) mOsm/k g Lactic Acid 2.9 H (0.5-2.2) mmol/L Calcium (8.5-10.5) mg/dL Total Bilirubin (0.15-1.2) mg/dL AST (0-32) U/L ALT (0-33) U/L Alkaline Phosphata se (35-105) IU/L C-Reactive Protein (0.0-4.9) mg/L NT-Pro-B Natriuret Pep (0-450) pg/mL Total Protein (6.6-8.7) g/dL Albumin (3.5-5.2) g/dL Globulin (1.3-4.6) g/dL Influenza Type A A g Negative (Negative) Influenza Type B A g Negative (Negative) SARS-CoV-2 Ag (Rap id) Negative (Negative) Imaging Data: CXR: Radiologist's impression: [address] [address] XRay Report Signed Patient: Camryn Bocanegra Unit #: [id number] : 1940 Age/Sex: 80 / F ADM Date: 10/31/20 Loc: ER Room/Bed: Attending Dr: Ordering Provider/Ordering MD: Jia Peterson MD Date of Service: 10/31/20 Procedure(s): XR chest 1V portable [id number] Accession Number(s): [id number] Report Number: [id number] WS: [id number] Portable AP upright chest, 10/31/2020 Clinical Data: sob Comparison: Portable chest, 08/13/2020. Findings: The patchy opacities in both lungs remain unchanged. The heart is enlarged. The aortic arch and descending aorta show calcification and tortuosity. No pneumothorax is present. There are radiopaque clips in the left axilla. There are monitor leads on the chest wall. XR/XR chest 1V portable [id number] Impression: 1. Bilateral patchy opacities in both lower lobes which may represent chronic interstitial change or acute pneumonia. 2. Atherosclerosis and cardiomegaly. EKG Data: EKG 1: Attestation: I personally reviewed and interpreted this EKG as follows: EKG interpretation date: 10/31/20 EKG interpretation time: 12:23 Interpretation: nsr hr [address] or t wave abnormalities qrs 125 qtc 416 COVID Results: SARS-CoV-2 Antigen (Rapid) Negative (Negative) 10/31/20 11:56 10/31/20 Critical Care Time Critical Care Time: Critical Care Time: Yes Total Critical Care Time: 36 Attestation: This case had a high probability of a clinically significant, sudden, or life threatening deterioration of this patient's condition which required my full and direct attention, intervention and personal management. Discharge Plan Discharge Patient Disposition: Admitted As Inpatient Admit Provider: King Venegas Clinical Impression: Pneumonia Qualifiers: Pneumonia type: due to unspecified organism Laterality: bilateral Lung location: lower lobe of lung Qualified Code(s): J18.9 - Pneumonia, unspecified organism CHF exacerbation Qualifiers: Heart failure type: unspecified Qualified Code(s): I50.9 - Heart failure, unspecified Condition: Stable Coding Level of Care Code ED Content Management Consultant for [employer] Exam Comprehensive
[2020-10-31 12:19] LABS: Basophils # 0.1 10^3/uL (0.0-0.1); Basophils % 0.5 %; Eosinophils % 0.1 %; Hematocrit 46.6 % (37.0-47.0); Hemoglobin 14.1 g/dL (11.5-15.3); Lymphocytes % 6.1 %; Mean Corpuscular HGB Conc 30.3 g/dL (30.0-36.0); Mean Corpuscular Hemoglobin 29.9 pg (28.0-34.0); Mean Corpuscular Volume 98.9 fL (81-99); Mean Platelet Volume 10.3 fL (7.4-10.4); Monocytes # 1.6 10^3/uL (0.2-0.9); Monocytes % 9.8 %; Neutrophils % 82.7 %; Nucleated Red Blood Cells % 0 %; Platelet Count 362 10^3/cmm (130-400); Red Blood Count 4.71 10^6/uL (4.1-5.3); Red Cell Distribution Width 15.8 % (12.1-15.1); White Blood Count 16.3 10^3/uL (4.0-10.0)
[2020-10-31 12:28] LABS: Lactic Sepsis W/Reflex 2.9 mmol/L (0.5-2.2)
[2020-10-31 12:29] LABS: INR 1.07 (0.8-1.2)
[2020-10-31 12:30] LABS: Fibrinogen 375 mg/dL (174-498)
[2020-10-31 12:39] LABS: Alanine Aminotransferase 33 U/L (0-33); Alkaline Phosphatase 96 IU/L (35-105); Anion Gap 13.5 (5-19); Aspartate Amino Transferase 29 U/L (0-32); Blood Urea Nitrogen 46 mg/dL (8-23); C Reactive Protein 17.5 mg/L (0.0-4.9); Calcium 10.6 mg/dL (8.5-10.5); Carbon Dioxide 38 mmol/L (22-29); Chloride 93 mmol/L (98-107); Globulin 2.7 g/dL (1.3-4.6); Glucose 341 mg/dL (65-115); NT Pro B Type Natriuretic Pept 7129 pg/mL (0-450); Osmolality Calculated 315 mOsm/kg (285-295); Potassium 4.5 mmol/L (3.5-5.1); Sodium 140 mmol/L (136-145); Total Bilirubin 0.7 mg/dL (0.15-1.2); Total Protein 6.7 g/dL (6.6-8.7)
[2020-10-31 12:47] LABS: Influenza A by IFA Negative (Negative); Influenza B by IFA Negative (Negative); SARS Covid-2 Antigen Negative (Negative)
[2020-10-31] MEDS: ipratropium-albuterol 3 mL Neb INHALATION (13:38)
[2020-10-31 13:58] LABS: Reflex Lactate Order REFLEX LACTIC ORDERD
--- NOTE | 2020-10-31 14:54 | CT_ITS ---
WS: [id number] CTA OF THE CHEST WITH PULMONARY EMBOLISM PROTOCOL TECHNIQUE: High-resolution contrast enhanced CTA of the chest with coronal and sagittal reformatted i mages with pulmonary embolism protocol. MIP images are also reviewed. CLINICAL INFORMATION: sob COMPARISON: None. DLP: 828.[address] scans at [facility] use at least one of these dose optimization techniques: automat ed exposure control; mA and/or kV adjustment per patient size (includes targeted exams where dose is matched to clinical indication); or iterative reconstruction. FINDINGS: Proximal main pulmonary arteries are patent. Extensive filling defects in the proximal segmental and subsegmental pulmonary arteries throughout both lungs worse involving the right upper lobe. Findings compatible with pulmonary embolus. Shallow inspiration. Atelectasis in the lung bases. No mediastinal or hilar lymphadenopathy. No axill zenaida lymphadenopathy. Bilateral thyroid nodules. A few prominent peribronchial lymph nodes likely reac tive. Moderate thoracic kyphosis with chronic anterior wedging in the mid thoracic spine. CT/CT angio chest PE protcl [id number] IMPRESSION: 1. Extensive bilateral pulmonary embolus throughout both lungs worse in the ri ght upper lobe. 2. No acute pulmonary infiltrates. Slight subsegmental atelectasis in the lung bases. 3. Shallow inspiration. Notified King Venegas MD at 10/31/2020 4:41 PM.
[2020-10-31] MEDS: azithromycin 500 MG in sodium chloride 0.9% 250 ML 250 MG IV (15:12)
[2020-10-31 16:05] LABS: Glucose Point of Care 237 mg/dL (70-110)
[2020-10-31 16:05] LABS: Lactic Acid level (Lactate) 1.9 mmol/L (0.5-2.2)
--- NOTE | 2020-10-31 16:15 | PC.NURSE ---
Patient taken to CT scan on bed for chest CT. O2 on at 3L/NC.
[2020-10-31] MEDS: iodixanol 320 mg/mL 100mL Btl IV (16:24)
--- NOTE | 2020-10-31 16:41 | PM.HP ---
Providers/Chief Complaint Admitting Physician: King Venegas MD Primary Care Provider: Daya Bettencourt APN Chief Complaint: covid sypmtoms/appetite loss History of Present Illness Camryn Bocanegra is a 80 year old female with a past medical history of hypertension, hyperlipidemia, fdq-padngpk-eojlarric type 2 diabetes mellitus, vitamin B12 deficiency, vitamin D deficiency, CHF who presents to [facility] due to complaints of shortness of breath. [place] by herself, she has found members check up on her, recently she has been experiencing more shortness of breath. Patient tells me that she has heart failure, she uses Lasix, she has been experiencing more shortness of breath at rest and with exertion, bilateral lower extreme edema, has orthopnea, has paroxysmal nocturnal dyspnea. No chest pain. No palpitations. No fevers. No chills, no nausea, no vomiting no significant cardiovascular history. No history of COPD. No history of smoking. No history of strokes. No history of DVT or PE. Patient was found to have CHF exacerbation, and hypercarbic respiratory failure, hospitalist team was called for admission. Review of Systems Const: Denies: fever(s), chills, fatigue or malaise Eyes: Denies: change in vision or blurry vision ENMT: Denies: nasal congestion Card: Denies: chest pain or palpitations Resp: Reports: dyspnea; Denies: productive cough, non-productive cough or wheezing GI: Denies: abdominal pain, nausea, vomiting, hematemesis, diarrhea, constipation, hematochezia or melena : Denies: flank pain, dysuria or urinary frequency Musc: Denies: neck pain or back pain Skin/Breast: Denies: rash Neuro: Denies: headache(s), dizziness or vertigo Psych: Denies: anxiety or depression Endo: Denies: polyuria or polydipsia Medications/Allergies Home Medications Medication Instructions Recorded Confirmed Last Taken Type Stool Softener 2 cap PO BID 08/13/20 10/31/20 Unknown History acetaminophen [Tylenol Extra 500 - 1,000 mg PO PRN 08/13/20 10/31/20 10/30/20 History Strength] aspirin 81 mg PO DAILY 08/13/20 10/31/20 10/31/20 History mnrqgrm-vkpylizuu-pmhk 1 tab PO DAILY 08/13/20 10/31/20 10/31/20 History chlorthalidone 25 mg PO DAILY 08/13/20 10/31/20 10/31/20 History cholecalciferol (vitamin D3) 25 mcg PO DAILY 08/13/20 10/31/20 10/31/20 History [Vitamin D3] cyanocobalamin (vitamin B-12) 1,000 mcg PO DAILY 08/13/20 10/31/20 10/31/20 History [Vitamin B-12] diphenhydramine HCl [Benadryl] See Rx Instructions .ROUTE .COMPLEX 08/13/20 10/31/20 10/30/20 History doxycycline hyclate 100 mg PO DAILY 08/13/20 10/31/20 10/31/20 History furosemide 40 mg PO DAILY #3 tab 08/13/20 10/31/20 10/31/20 Rx losartan 100 mg PO DAILY 08/13/20 10/31/20 10/31/20 History metformin 500 mg PO QPM 08/13/20 10/31/20 10/30/20 History metoprolol succinate 50 mg PO DAILY 08/13/20 10/31/20 10/31/20 History multivitamin [Multiple Vitamins] 1 tab PO DAILY 08/13/20 10/31/20 10/31/20 History nitroglycerin [Nitrostat] 0.4 mg SUBLINGUAL Q5M PRN 08/13/20 10/31/20 Unknown History oxybutynin chloride 5 mg PO QID 08/13/20 10/31/20 08/13/20 12:00 History potassium chloride 10 meq PO BID 08/13/20 10/31/20 10/31/20 History ibuprofen 800 mg PO TID 10/31/20 10/31/20 Unknown History Allergies Allergy/AdvReac Type Severity Reaction Status Date / Time meperidine Allergy Unknown ADR-Halluci Verified 10/31/20 11:20 nating PFSH Acute PFSH: Medical History (Updated 10/31/20 @ 16:55 by King Venegas MD) History of heart failure History of hyperlipidemia History of hypertension History of hypothyroidism History of urinary incontinence Surgical History (Updated 10/31/20 @ 16:49 by King Venegas MD) History of hysterectomy Family History (Updated 10/31/20 @ 16:49 by King Venegas MD) Other CAD (coronary artery disease) Diabetes Social History (Updated 10/31/20 @ 16:49 by King Venegas MD) Smoking and tobacco status: never smoked Alcohol intake: never Substance/Drug Use: never Vitals/I&O/Wt Last Vital Signs Temp 97.6 F 10/31/20 15:52 Pulse 93 10/31/20 15:52 Resp 22 H 10/31/20 15:52 BP 119/74 10/31/20 15:52 Pulse Ox 91 10/31/20 15:52 Weight last 48 hrs Weight 125.191 kg Physical Exam Const: COMMON NORMALS: no acute distress and patient oriented x3 GENERAL APPEARANCE: cooperative and comfortable HENMT: COMMON NORMALS: normocephalic HEAD & SCALP: normocephalic Eye: COMMON NORMALS: Equal, round and reactive pupils present and EOMs intact bilaterally GENERAL EYE: appearance normal, both eyes and all related structures PUPIL: Yes Equal, round and reactive pupils present Neck/C-Spine: COMMON NORMALS: full ROM, no lymphadenopathy, no JVD and Thyroid normal THYROID: Thyroid normal Lymph: LYMPHATIC: no lymphadenopathy noted Resp: COMMON NORMALS: normal respiratory effort, No retractions, No use of accessory muscles and clear to auscultation bilaterally AUSCULTATION: clear to auscultation bilaterally Cardio: COMMON NORMALS: no JVD, regular rate, regular rhythm, S1 normal heart sound present, S2 normal heart sound present, No gallops present (Cardio), No clicks present (Cardio) and No murmurs present (Cardio) RATE: regular rate RHYTHM: regular rhythm HEART SOUNDS: S1 normal heart sound present and S2 normal heart sound present GI: COMMON NORMALS: Normal to inspection, nondistended, normoactive bowel sounds present, Soft to palpation, non-tender and No hepatosplenomegaly present PALPATION: Yes Soft to palpation and Yes No hepatosplenomegaly present Extremity: COMMON NORMALS: normal to inspection and full ROM NARRATIVE EXTREMITY EXAM: 2+ pitting edema bilaterally Neuro: COMMON NORMALS: patient oriented x3, CN's II-XII intact bilaterally, moves all extremities and no focal motor deficits Psych: COMMON NORMALS: mental status grossly normal, Normal thought process present and cooperative THOUGHT PROCESS: Normal thought process present Data : 10/31/20 11:56 12/02/20 11:56 Micro: Microbiology 10/31/20 12:42 Blood Culture - Preliminary Blood SPECIMEN COLLECTED 10/31/20 11:56 Blood Culture - Preliminary Blood SPECIMEN COLLECTED A&P Assessment and plan (1) Acute hypercapnic respiratory failure: Secondary to CHF exacerbation, type unknown, pulmonary edema, extensive bilateral pulmonary emboli, some obesity hypoventilation -Preliminary CT angiogram of the chest shows extensive pulmonary emboli, pulmonary edema -BNP 7129 Plan: -Admit to cardiac stepdown unit -Aspirin, statin -Serial troponins, serial EKGs -Telemetry monitoring -Therapeutic Lovenox -Cardiac echocardiogram ordered -Bilateral extremity ultrasounds ordered -Lasix 40 mg IV twice daily, daily weights, fluid restrictions 1500 cc, monitor creatinine -Continue BiPAP, BiPAP during the night, can transition to nasal cannula -Repeat ABG in the a.m. -Etiology of pulmonary emboli unknown at this point, will require further work-up -Full code -Lovenox for DVT prophylaxis Status: Acute (2) Bilateral pulmonary embolism: Status: Acute (3) CHF exacerbation: Status: Acute Qualifiers: Heart failure type: unspecified Qualified Code(s): I50.9 - Heart failure, unspecified (4) History of heart failure: Status: Inactive (5) History of hyperlipidemia: Continue statin Status: Acute (6) History of hypertension: Continue metoprolol, hold chlorthalidone given creatinine 1.2 Status: Acute (7) History of hypothyroidism: Continue levothyroxine Status: Acute (8) Acute kidney injury: Creatinine 1.2, did get contrast, continue to monitor Status: Acute Attestations Medical Necessity Statement*: Patient requires hospitalization for acute hypercarbic respiratory failure secondary to CHF, pulmonary edema, extensive pulmonary emboli, inpatient, greater than 2 midnights Coding Level of Care Code Acute 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 Fwd Diagnoses Acute hypercapnic respiratory failure J96.02 Bilateral pulmonary embolism I26.99 CHF exacerbation I50.9 Heart failure type: unspecified History of heart failure Z86.79 History of hyperlipidemia Z86.39 History of hypertension Z86.79 History of hypothyroidism Z86.39 Acute kidney injury N17.9
[2020-10-31 17:28] LABS: ABG PH Result 7.32 (7.35-7.45)
[2020-10-31 17:29] LABS: ABG PCO2 68.5 mmHg (35-45); Base Excess ABG 6.8 mmol/L (-2.0-2.0); Blood Gas Operator Identificat ED; HCO3 ABG 35.5 mmol/L (22-26); PO2 ABG 72.3 mmHg (80.0-100.0)
[2020-10-31 17:30] LABS: Arterial Blood Gas Hematocrit 44.2 % (37-47); Blood Gas Sample Type Arterial; Oxygen Device NC
[2020-10-31] MEDS: FUROsemide 10 mg/mL SDV 4mL 40 MG IVP (18:10)
[2020-10-31] MEDS: enoxaparin 120 mg/0.8 mL Syringe SUBCUT (18:10)
[2020-10-31] MEDS: oxybutynin 5 mg Tablet PO (18:11)
[2020-10-31] MEDS: potassium chloride ER 10 mEq Tablet PO (18:11)
--- NOTE | 2020-10-31 18:40 | ECG_ITS ---
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 Measurements Intervals [place] Rate: 82 P: 146 MO: 133 QRS: -30 QRSD: 96 T: 153 QT: 389 QTc: 456 Interpretive Statements ECTOPIC ATRIAL RHYTHM POSSIBLE LEFT ATRIAL ENLARGEMENT INDETERMINATE AXIS LOW QRS VOLTAGE IN PRECORDIAL LEADS INCOMPLETE RIGHT BUNDLE BRANCH BLOCK MODERATE T-WAVE ABNORMALITY, CONSIDER ANTERIOR ISCHEMIA Compared to ECG 10/31/2020 12:23:47 Ectopic atrial rhythm now present Incomplete right bundle-branch block now present T-wave abnormality now present Possible ischemia now present Ventricular premature complex(es) no longer present Electronically Signed On 10-31-2020 18:31:19 COMB MACHINE OPERATOR by Leatha Gonzalez M.D. [id number]
[2020-10-31 19:12] LABS: Troponin(5th) Baseline 50 ng/L (0-10)
--- NOTE | 2020-10-31 19:20 | PC.NURSE ---
Received report from FROYLAN Long. Patient resting in bed eating her dinner. Denies pain or needs at this time. No distress observed. Instructed patient on plan. Reinforcement needed.
[2020-10-31 19:59] LABS: Glucose Point of Care 174 mg/dL (70-110)
[2020-10-31 20:16] LABS: C Reactive Protein 19.7 mg/L (0.0-4.9)
[2020-10-31] MEDS: atorvastatin 40 mg Tablet PO (20:18)
[2020-10-31] MEDS: bisacodyl 10 mg Supp PR (20:23)
[2020-10-31 20:31] LABS: Troponin 5 2HR 51.76 ng/L (0-10); Troponin 5 2HR Delta 1.76 ABS# (0-10)
[2020-10-31 21:07] LABS: Procalcitonin 0.16 ng/mL (0-0.5)
[2020-11-01] VITALS (69 sets, daily range): BP systolic 65–148; BP diastolic 36–77; PULSE 77–111; RESP 7–50; TEMP 35–37.7; O2SAT 81–100
[2020-11-01 01:47] LABS: Troponin 5 6HR 57.27 ng/L (0-10); Troponin 5 6HR Delta 7.27 ng/L (0-12)
--- NOTE | 2020-11-01 01:48 | PC.NURSE ---
Patient was requesting something to help with sleep. Informed Dr Reynolds and received order for benadryl 25mg PO x2 tabs once. Did not administer the Benadryl due to patient already sleeping. Informed Dr Reynolds that medication was not given.
--- NOTE | 2020-11-01 03:08 | PC.NURSE ---
Patient removing bipap with SpO2 decreasing into the 70%. Bipap replaced however patient requesting to have a break from the bipap. RT in to see patient and is placing a 100% non-rebreather at this time. SpO2 is currently 96% on the non-rebreather.
[2020-11-01] MEDS: ondansetron 2 mg/ML SDV 2 mL 4 MG IVP (04:31)
[2020-11-01 05:06] LABS: Basophils # 0.1 10^3/uL (0.0-0.1); Basophils % 0.4 %; Eosinophils # 0.1 10^3/uL (0.0-0.8); Eosinophils % 0.3 %; Hematocrit 34.7 % (37.0-47.0); Hemoglobin 10.3 g/dL (11.5-15.3); Lymphocytes # 2.2 10^3/uL (0.8-4.8); Lymphocytes % 11.6 %; Mean Corpuscular HGB Conc 29.7 g/dL (30.0-36.0); Mean Corpuscular Hemoglobin 29.8 pg (28.0-34.0); Mean Corpuscular Volume 100.3 fL (81-99); Mean Platelet Volume 10.6 fL (7.4-10.4); Monocytes # 2.6 10^3/uL (0.2-0.9); Monocytes % 13.4 %; Neutrophils # 14.09 10^3/uL (1.8-7.7); Neutrophils % 73.3 %; Nucleated Red Blood Cells % 0.1 %; Platelet Count 344 10^3/cmm (130-400); Red Blood Count 3.46 10^6/uL (4.1-5.3); Red Cell Distribution Width 15.8 % (12.1-15.1); White Blood Count 19.2 10^3/uL (4.0-10.0)
[2020-11-01 05:34] LABS: Chol HDL Ratio 2.94 mg/dL (0.0-4.40); Cholesterol 97 mg/dL (0-200); HDL Cholesterol 33 mg/dL (60-100); LDL Cholesterol Calculated 41 mg/dL (50-129); LDL HDL Ratio 1.24 RATIO (0.00-3.22); NT Pro B Type Natriuretic Pept 5923 pg/mL (0-450); Triglycerides 115 mg/dL (0-150)
[2020-11-01 05:35] LABS: Alanine Aminotransferase 20 U/L (0-33); Albumin Level 2.9 g/dL (3.5-5.2); Alkaline Phosphatase 62 IU/L (35-105); Anion Gap 13.3 (5-19); Aspartate Amino Transferase 12 U/L (0-32); Blood Urea Nitrogen 66 mg/dL (8-23); Calcium 9.3 mg/dL (8.5-10.5); Carbon Dioxide 37 mmol/L (22-29); Chloride 95 mmol/L (98-107); Globulin 2.2 g/dL (1.3-4.6); Glucose 263 mg/dL (65-115); Magnesium 2.2 mg/dL (1.7-2.3); Osmolality Calculated 318 mOsm/kg (285-295); Phosphorus 5.4 mg/dL (2.5-4.5); Potassium 5.3 mmol/L (3.5-5.1); Sodium 140 mmol/L (136-145); Total Bilirubin 0.6 mg/dL (0.15-1.2); Total Protein 5.1 g/dL (6.6-8.7)
[2020-11-01 05:38] LABS: Estmated Average Glucose 177; Hemoglobin A1C 7.8 % (4.0-6.0)
--- NOTE | 2020-11-01 06:00 | ECG_ITS ---
[facility] Test Date: 2020-11-01 Pat Name: Camryn Bocanegra Department: Room: [facility] Gender: Female Driver'S License Examiner: : 1940 Requested By: Tevin Reynolds Order Number: [id number] Evan MD: Vishnu Lynn M.D. Measurements Intervals Parachute Rate: 97 P: 59 IN: 134 QRS: -20 QRSD: 91 T: 32 QT: 352 QTc: 449 Interpretive Statements SINUS RHYTHM WITH FREQUENT VENTRICULAR PREMATURE COMPLEXES LOW QRS VOLTAGE IN PRECORDIAL LEADS [QRS DEFLECTION < 1.0 mV IN CHEST LEADS] NONSPECIFIC ST & T-WAVE ABNORMALITY ABNORMAL RHYTHM ECG Compared to ECG 10/31/2020 18:14:47 Ventricular premature complex(es) now present Ectopic atrial rhythm no longer present Indeterminate axis no longer present Incomplete right bundle-branch block no longer present Possible ischemia no longer present T-wave abnormality still present Electronically Signed On 11-01-2020 17:38:[address] [employer]LL[employer] ENGINEER by Vishnu Lynn M.D. [id number]
--- NOTE | 2020-11-01 06:13 | PC.NURSE ---
Patient had large copious amount of bloody stool. Cleaned patient. Informed Dr Reynolds of bloody stool and low blood pressure. Obtained manual BP of 55/37. Patient remains alert and oriented. Dr Reynolds in room to see patient. Received multiple verbal orders as entered. Patient transfered to ICU 8. Called to report to FROYLAN Fisher.
[2020-11-01] MEDS: pantoprazole 40 MG in sodium chloride 0.9% (plus) 100 ML 20 MG IV ×2 (06:23→11:07)
[2020-11-01 06:33] LABS: Basophils # 0.1 10^3/uL (0.0-0.1); Basophils % 0.4 %; Eosinophils % 0.1 %; Hematocrit 31.7 % (37.0-47.0); Hemoglobin 9.4 g/dL (11.5-15.3); Lymphocytes # 1.9 10^3/uL (0.8-4.8); Mean Corpuscular HGB Conc 29.7 g/dL (30.0-36.0); Mean Corpuscular Volume 101.3 fL (81-99); Mean Platelet Volume 10.7 fL (7.4-10.4); Monocytes % 10.5 %; Neutrophils # 15.17 10^3/uL (1.8-7.7); Neutrophils % 78.1 %; Nucleated Red Blood Cells % 0 %; Platelet Count 329 10^3/cmm (130-400); Red Blood Count 3.13 10^6/uL (4.1-5.3); Red Cell Distribution Width 15.7 % (12.1-15.1); White Blood Count 19.4 10^3/uL (4.0-10.0)
[2020-11-01 06:35] LABS: Glucose Point of Care 312 mg/dL (70-110)
[2020-11-01 06:47] LABS: Alanine Aminotransferase 18 U/L (0-33); Albumin Level 2.6 g/dL (3.5-5.2); Alkaline Phosphatase 58 IU/L (35-105); Anion Gap 14.5 (5-19); Aspartate Amino Transferase 12 U/L (0-32); Blood Urea Nitrogen 74 mg/dL (8-23); Calcium 8.9 mg/dL (8.5-10.5); Carbon Dioxide 36 mmol/L (22-29); Chloride 95 mmol/L (98-107); Globulin 2.2 g/dL (1.3-4.6); Glucose 324 mg/dL (65-115); Osmolality Calculated 324 mOsm/kg (285-295); Potassium 5.5 mmol/L (3.5-5.1); Sodium 140 mmol/L (136-145); Total Bilirubin 0.6 mg/dL (0.15-1.2); Total Protein 4.8 g/dL (6.6-8.7)
--- NOTE | 2020-11-01 06:50 | PC.NURSE ---
Report received from Traci Denise RN. Patient transferred to ICU from [facility] due to hypotension and visualized bloody stool. Patient is alert and oriented, following all commands, patient placed in room ICU-8 with belongings. Patient is sinus on the monitor with ectopy and bigeminal episodes. Lung sounds diminished b/l, patient originally started on BiPap upon arrival and changed to Non-rebreather. Patient normally wears 2L via NC at home. Patient complains of mid-abdominal discomfort upon palpation. Hensley catheter draining. 2 additional Peripheral IV's obtained in Left arm. Patient started on IV LEvophed, 1L bolus of normal saline 0.9%. and a protonix gtt
[2020-11-01 06:53] LABS: Creatinine Clr Calc Pharmacy 36.6989
[2020-11-01] MEDS: sodium chloride 0.9% 1,000 ML 999 ML IV (06:55)
--- NOTE | 2020-11-01 08:23 | PC.OT ---
OT note: Pt with BP 80/47, about to get blood, potassium 5.5. Will hold today as discussed with nurse.
[2020-11-01 09:06] LABS: Glucose Point of Care 350 mg/dL (70-110)
[2020-11-01] MEDS: lactated ringers 500 ML 999 ML IV (09:13)
[2020-11-01] MEDS: cholecalciferol (vitamin D3) 1,000 unit Tablet 1000 UNIT PO (09:14)
[2020-11-01] MEDS: multivitamin therapeutic Tablet 1 TAB PO (09:15)
[2020-11-01] MEDS: cyanocobalamin 1,000 mcg Tablet 1000 MCG PO (09:15)
[2020-11-01] MEDS: pantoprazole DR 40 mg Tablet PO (09:15)
--- NOTE | 2020-11-01 10:33 | PC.NURSE ---
Came on shift and patient bp80/50s. MD at bedside. Ordered 2RBC and 1FFP. Also stated I could increase levophed drip to 20mcg as needed to keep MAP above 65. Patient is arousable but drowsy. Although even after increasing levophed to 20mcg, patients map still 55-62. Called MD and he stated to order vasopressin at 0.03 and make sure to get PICC in. I contacted OR and they stated they would send someone to do it. PAtient also had one small bloody stool. MD aware.
--- NOTE | 2020-11-01 10:47 | PC.NURSE ---
PICC NOTE 0810- CALLED ICU TO CHECK FOR PICC LINE CONSENT, FROYLAN GATES STATES PROCEDURE CONSENT IS NOT COMPLETED.
[2020-11-01 11:15] LABS: Glucose Point of Care 299 mg/dL (70-110)
--- NOTE | 2020-11-01 11:48 | PC.NURSE ---
bp continuing to map 60s. md ordered 2 more rbc and one more ffp. i notified daughter minor this morning about needing picc line and possibly central line and blood products as well. She okayed and gave consent with FROYLAN Eason as witness. also called ER to get MD to come and place central line.
--- NOTE | 2020-11-01 11:53 | XR_ITS ---
WS: [id number] Portable AP supine chest, 11/01/2020 Clinical Data: cvl Comparison: Portable chest, 10/31/2020 Findings: The right internal jugular venous catheter has been inserted and ends in the superior vena cava. The bilateral patchy opacities remain unchanged. No nodules, masses or effusions are seen. The heart is normal. The pulmonary vascularity is not increased. No pneumothorax is seen. Monitor leads are on the chest wall. XR/XR chest 1V portable [id number] Impression: Satisfactory insertion of right internal jugular venous catheter.
--- NOTE | 2020-11-01 12:04 | ANES.PROC ---
Anesthesia Procedures Procedure/Date: 11/01/20 Central Venous Insert: Central Venous Line: Righ Internal Jugular Time Out Performed: Yes Consent: requested by attending/covering physician, from patient, from other, risks and benefits reviewed and patient agrees to proceed Central Line: New Anesthesia monitors: pulse oximetry, EKG, BP cuff and oxygen Vein cannulated: right internal jugular Ultrasound used: to identify patency to vessel and to visualize needle entry to vein Post procedure: Obtain Chest X-Ray Additional Comments: R neck and chest prepped with chloroprep 4X, sterile full body drape applied while donning gown, gloves, and mask. US used to identify R IJ and R carotid. Lidocaine 3 cc local anesthestic used over skin. 18g angiocath over needle technique used to obtain IV access, blood aspirated freely and angiocath advanced over needle. Wire inserted with no resistance - US used to visualize wire both in-plane and [id number] in the internal jugular vein. once visualized, vessel was dilated and catheter was placed, and sutured. Free aspiration of heme from each port and flushed with sterile saline. Dressing applied. CXR obtained to confirm appropriate placement - reviewed at bedside Dr. Venegas.
--- NOTE | 2020-11-01 12:14 | PM.TDS ---
Transfer Summary Providers Date of Admission: 10/31/20 15:19 Date of Discharge: 11/01/20 Attending Provider at Admission: King Venegas MD Attending Provider at Transfer: King Venegas MD Primary Care Provider: Daya Bettencourt APN Anticipated Date of Transfer: Anticipated date of transfer: 11/01/20 Receiving Facility & Provider: Receiving Provider: [] Receiving facility: [] Diagnoses at Discharge Discharge Diagnosis (1) Acute hypercapnic respiratory failure: Status: Acute (2) Bilateral pulmonary embolism: Status: Acute (3) CHF exacerbation: Status: Acute Qualifiers: Heart failure type: unspecified Qualified Code(s): I50.9 - Heart failure, unspecified (4) History of heart failure: Status: Inactive (5) History of hyperlipidemia: Status: Acute (6) History of hypertension: Status: Acute (7) History of hypothyroidism: Status: Acute (8) Acute kidney injury: Status: Acute Reason for Visit Reason for Visit: covid sypmtoms/appetite loss Hospital Course Hospital Course Camryn Bocanegra is a 80 year old female with a past medical history of hypertension, hyperlipidemia, emd-iuqtqrr-decsypfdr type 2 diabetes mellitus, vitamin B12 deficiency, vitamin D deficiency, CHF who presents to [facility] due to complaints of shortness of breath. Patient was admitted to [facility] for acute hypercapnic respiratory failure secondary to CHF exacerbation, pulmonary edema, extensive pulmonary emboli, obesity hypoventilation syndrome -CT angiogram of the chest showed extensive bilateral pulmonary emboli throughout both lungs, worse in the right upper lobe, some pulmonary edema -Echocardiogram is pending -Bilateral lower extremity ultrasounds are pending Patient is was admitted to cardiac stepdown unit, was started on therapeutic Lovenox, Lasix, BiPAP and clinically monitored. Throughout the evening, patient was doing well, no significant shortness of breath, daughter was at bedside, they are worried about her going home by herself as she has been complaining of generalized fatigue and weakness Overnight at roughly 630, patient developed an episode of bloody stools, map dropped to less than 65, concerns for GI bleed secondary to Lovenox, patient was moved to the ICU. She was stabilized in ICU, central line was placed, she has received 4 units of PRBC, 2 units of FFP, will receive another 2 units of PRBC, another 1 unit of FFP, on 20 of Levophed, 0.03 of vasopressin, currently map greater than 65, alert oriented x3. I discussed the case with general surgery, given her large pulmonary emboli, patient is a high risk of EGD and colonoscopy. I had a discussion with patient and her healthcare power of managing attorney due to concerns for GI bleed, likely diverticular bleed, requiring angiographic embolization which we do not do here at [facility]. Patient voiced understanding, all questions answered, agreed to proceed to transfer. Patient was transfered to [facility], to Dr. Chery. At some point patient will require an IVC filter, bilateral extremity ultrasounds are pending. Physical Exam Const: COMMON NORMALS: no acute distress and patient oriented x3 EXAM LIMITATIONS: behavioral limitations GENERAL APPEARANCE: cooperative and comfortable HENMT: COMMON NORMALS: normocephalic HEAD & SCALP: normocephalic Eye: COMMON NORMALS: Equal, round and reactive pupils present and EOMs intact bilaterally GENERAL EYE: appearance normal, both eyes and all related structures PUPIL: Yes Equal, round and reactive pupils present Neck/C-Spine: COMMON NORMALS: full ROM, no lymphadenopathy, no JVD and Thyroid normal THYROID: Thyroid normal Lymph: LYMPHATIC: no lymphadenopathy noted Resp: COMMON NORMALS: normal respiratory effort, No retractions, No use of accessory muscles and clear to auscultation bilaterally AUSCULTATION: clear to auscultation bilaterally Cardio: COMMON NORMALS: no JVD, regular rate, regular rhythm, S1 normal heart sound present, S2 normal heart sound present, No gallops present (Cardio), No clicks present (Cardio) and No murmurs present (Cardio) RATE: regular rate RHYTHM: regular rhythm HEART SOUNDS: S1 normal heart sound present and S2 normal heart sound present GI: COMMON NORMALS: Normal to inspection, nondistended, normoactive bowel sounds present, Soft to palpation, non-tender and No hepatosplenomegaly present PALPATION: Yes Soft to palpation and Yes No hepatosplenomegaly present Extremity: COMMON NORMALS: normal to inspection, full ROM and no pedal edema Neuro: COMMON NORMALS: patient oriented x3 Psych: COMMON NORMALS: mental status grossly normal, Normal thought process present and cooperative THOUGHT PROCESS: Normal thought process present Urinary Catheter Management^: H[place]ley Latex Free: Cath Placed During This Visit: yes Reason for Continuing Indwelling Catheter: Acute Urinary Retention or Obstruction Urinary Catheter Date of Insertion: 10/31/20 Urinary Catheter Time of Insertion: 18:00 TS Data Data Completed and Pending: Completed Studies During Hospitalization Category Date Time Status CT angio chest PE protcl [id number] Stat Cat Scan 10/31/20 14:54 Completed XR chest 1V maribell ble [id number] Stat Exams 10/31/20 11:19 Completed Pending at discharge Category Date Time Status CXRP [XR chest 1V portable [id number]] S tat Exams 11/01/20 11:53 Taken ABG FULL [Arteria l Blood Gas Full] Stat Lab 11/01/20 10:15 Received ABG FULL [Arteria l Blood Gas Full] Stat Lab 11/01/20 11:30 Received Arterial Blood Ga s W/O Coox AM LABS Lab 11/01/20 04:00 Ordered Arterial Blood Ga s W/O Coox AM LABS Lab 11/02/20 04:00 Ordered Arterial Blood Ga s W/O Coox AM LABS Lab 11/03/20 04:00 Ordered Blood Culture Sta t Lab 10/31/20 12:42 Results Complete Blood Co unt w/Auto AM LABS Lab 11/02/20 04:00 Ordered Complete Blood Co unt w/Auto AM LABS Lab 11/03/20 04:00 Ordered Complete Crossmat ch Routine Lab 11/01/20 06:20 Results Comprehensive Met abolic Panel AM LA BS Lab 11/02/20 04:00 Ordered Comprehensive Met abolic Panel AM LA BS Lab 11/03/20 04:00 Ordered Frozen Plasma FZ <24 1st Cont Routi ne Lab 11/01/20 06:20 Results Leukocyte Reduced RBC Routine Lab 11/01/20 06:20 Results Magnesium AM LABS Lab 11/02/20 04:00 Ordered Magnesium AM LABS Lab 11/03/20 04:00 Ordered NT Pro B Type Lauryn riuretic Pept QAM Lab 11/02/20 06:00 Ordered NT Pro B Type Lauryn riuretic Pept QAM Lab 11/03/20 06:00 Ordered Phosphorus AM LAB S Lab 11/02/20 04:00 Ordered Phosphorus AM LAB S Lab 11/03/20 04:00 Ordered Type and Screen R outine Lab 11/01/20 06:20 Results CV echo complete* [id number] Routine Ultrasound 11/02/20 07:00 [place] [id number] Routin e Ultrasound 11/02/20 07:00 Ordered Labs from last 24 hours 11/01/20 11/01/20 11/01/20 11:30 11:10 10:15 WBC RBC Hgb Hct MCV MCH MCHC RDW Plt Count MPV Neut % (Auto) Lymph % (Auto) [place] % (Auto) Eos % (Auto) Baso % (Auto) Neut # (Auto) Lymph # (Auto) [place] # (Auto) Eos # (Auto) Baso # (Auto) Nucleated RBC % (a uto) Nucleated RBCs # PT INR Fibrinogen Specimen Type Pending Pending Sample Site Pending Pending ABG pH Pending Pending ABG pCO2 Pending Pending ABG pO2 Pending Pending ABG HCO3 Pending Pending ABG O2 Saturation Pending Pending ABG Base Excess Pending Pending Aneudy Test Pending Pending A-a O2 Gradient Pending Pending Hematocrit Pending Pending Hgb O2 Saturation Pending Pending Carboxyhemoglobin Pending Pending Methemoglobin Pending Pending Total Hemoglobin Pending Pending Ionized Calcium Pending Pending O2 Delivery Device Pending Pending FiO2 911 Telecommunicator ID Pending Pending Sodium Pending Pending Potassium Pending Pending Chloride Carbon Dioxide Anion Gap BUN Creatinine GFR Calculation Glucose Pending Pending POC Glucose 299 Estimat Average Gl ucose Hemoglobin A1c Calculated Osmolal ity Lactic Acid Lactic Acid (Sepsi s) Calcium Phosphorus Magnesium Total Bilirubin AST ALT Alkaline Phosphata se Troponin T Baselin e Troponin T 120 Min [place] Delta Troponin T Troponin T Hi Sens 6Hr Troponin T Hi Sens 6Hr Delta C-Reactive Protein NT-Pro-B Natriuret Pep Total Protein Albumin Globulin Triglycerides Cholesterol LDL Cholesterol, C alc HDL Cholesterol LDL/HDL Ratio Cholesterol/HDL Ra peterson Procalcitonin TSH Influenza Type A A g Influenza Type B A g SARS-CoV-2 Ag (Rap id) Blood Type Rho(D) Type Antibody Screen Crossmatch 11/01/20 11/01/20 11/01/20 09:03 06:21 06:20 WBC RBC Hgb Hct MCV MCH MCHC RDW Plt Count MPV Neut % (Auto) Lymph % (Auto) [place] % (Auto) Eos % (Auto) Baso % (Auto) Neut # (Auto) Lymph # (Auto) [place] # (Auto) Eos # (Auto) Baso # (Auto) Nucleated RBC % (a uto) Nucleated RBCs # PT INR Fibrinogen Specimen Type Sample Site ABG pH ABG pCO2 ABG pO2 ABG HCO3 ABG O2 Saturation ABG Base Excess Aneudy Test A-a O2 Gradient Hematocrit Hgb O2 Saturation Carboxyhemoglobin Methemoglobin Total Hemoglobin Ionized Calcium O2 Delivery Device FiO2 911 Telecommunicator ID Sodium 140 Potassium 5.5 H Chloride 95 L Carbon Dioxide 36 H Anion Gap 14.5 BUN 74 H Creatinine 1.6 H GFR Calculation Not Reportable Glucose 324 H POC Glucose 350 312 Estimat Average Gl ucose Hemoglobin A1c Calculated Osmolal ity 324 H Lactic Acid Lactic Acid (Sepsi s) Calcium 8.9 Phosphorus Magnesium 2.0 Total Bilirubin 0.6 AST 12 ALT 18 Alkaline Phosphata se 58 Troponin T Baselin e Troponin T 120 Min [place] Delta Troponin T Troponin T Hi Sens 6Hr Troponin T Hi Sens 6Hr Delta C-Reactive Protein NT-Pro-B Natriuret Pep Total Protein 4.8 L Albumin 2.6 L Globulin 2.2 Triglycerides Cholesterol LDL Cholesterol, C alc HDL Cholesterol LDL/HDL Ratio Cholesterol/HDL Ra peters[place] Procalcitonin TSH Influenza Type A A g Influenza Type B A g SARS-CoV-2 Ag (Rap id) Blood Type Rho(D) Type Antibody Screen Crossmatch 11/01/20 11/01/20 11/01/20 06:20 06:20 04:24 WBC 19.4 H RBC 3.13 L Hgb 9.4 L Hct 31.7 L MCV 101.3 H MCH 30.0 MCHC 29.7 L RDW 15.7 H Plt Count 329 MPV 10.7 H Neut % (Auto) 78.1 Lymph % (Auto) 10.0 [place] % (Auto) 10.5 Eos % (Auto) 0.1 Baso % (Auto) 0.4 Neut # (Auto) 15.17 H Lymph # (Auto) 1.9 [place] # (Auto) 2.0 H Eos # (Auto) 0.0 Baso # (Auto) 0.1 Nucleated RBC % (a uto) 0 Nucleated RBCs # 0.0 PT INR Fibrinogen Specimen Type Sample Site ABG pH ABG pCO2 ABG pO2 ABG HCO3 ABG O2 Saturation ABG Base Excess Aneudy Test A-a O2 Gradient Hematocrit Hgb O2 Saturation Carboxyhemoglobin Methemoglobin Total Hemoglobin Ionized Calcium O2 Delivery Device FiO2 911 Telecommunicator ID Sodium Potassium Chloride Carbon Dioxide Anion Gap BUN Creatinine GFR Calculation Glucose POC Glucose Estimat Average Gl ucose Hemoglobin A1c Calculated Osmolal ity Lactic Acid Lactic Acid (Sepsi s) Calcium Phosphorus Magnesium Total Bilirubin AST ALT Alkaline Phosphata se Troponin T Baselin e Troponin T 120 Min [place] Delta Troponin T Troponin T Hi Sens 6Hr Troponin T Hi Sens 6Hr Delta C-Reactive Protein NT-Pro-B Natriuret Pep 5923 H Total Protein Albumin Globulin Triglycerides 115 Cholesterol 97 LDL Cholesterol, C alc 41 L HDL Cholesterol 33 L LDL/HDL Ratio 1.24 Cholesterol/HDL Ra peterson 2.94 Procalcitonin TSH Influenza Type A A g Influenza Type B A g SARS-CoV-2 Ag (Rap id) Blood Type O Positive Rho(D) Type Positive Antibody Screen Negative Crossmatch See Detail 11/01/20 11/01/20 11/01/20 04:24 04:24 04:24 WBC 19.2 H RBC 3.46 L Hgb 10.3 L Hct 34.7 L MCV 100.3 H MCH 29.8 MCHC 29.7 L RDW 15.8 H Plt Count 344 MPV 10.6 H Neut % (Auto) 73.3 Lymph % (Auto) 11.6 [place] % (Auto) 13.4 Eos % (Auto) 0.3 Baso % (Auto) 0.4 Neut # (Auto) 14.09 H Lymph # (Auto) 2.2 [place] # (Auto) 2.6 H Eos # (Auto) 0.1 Baso # (Auto) 0.1 Nucleated RBC % (a uto) 0.1 Nucleated RBCs # 0.0 PT INR Fibrinogen Specimen Type Sample Site ABG pH ABG pCO2 ABG pO2 ABG HCO3 ABG O2 Saturation ABG Base Excess Aneudy Test A-a O2 Gradient Hematocrit Hgb O2 Saturation Carboxyhemoglobin Methemoglobin Total Hemoglobin Ionized Calcium O2 Delivery Device FiO2 911 Telecommunicator ID Sodium 140 Potassium 5.3 H Chloride 95 L Carbon Dioxide 37 H Anion Gap 13.3 BUN 66 H Creatinine 1.4 H GFR Calculation Not Reportable Glucose 263 H POC Glucose Estimat Average Gl ucose 177 Hemoglobin A1c 7.8 H Calculated Osmolal ity 318 H Lactic Acid Lactic Acid (Sepsi s) Calcium 9.3 Phosphorus 5.4 H Magnesium 2.2 Total Bilirubin 0.6 AST 12 ALT 20 Alkaline Phosphata se 62 Troponin T Baselin e Troponin T 120 Min [place] Delta Troponin T Troponin T Hi Sens 6Hr Troponin T Hi Sens 6Hr Delta C-Reactive Protein NT-Pro-B Natriuret Pep Total Protein 5.1 L D Albumin 2.9 L Globulin 2.2 Triglycerides Cholesterol LDL Cholesterol, C alc HDL Cholesterol LDL/HDL Ratio Cholesterol/HDL Ra peterson Procalcitonin TSH 2.70 Influenza Type A A g Influenza Type B A g SARS-CoV-2 Ag (Rap id) Blood Type Rho(D) Type Antibody Screen Crossmatch 11/01/20 10/31/20 10/31/20 00:40 20:06 19:55 WBC RBC Hgb Hct MCV MCH MCHC RDW Plt Count MPV Neut % (Auto) Lymph % (Auto) [place] % (Auto) Eos % (Auto) Baso % (Auto) Neut # (Auto) Lymph # (Auto) [place] # (Auto) Eos # (Auto) Baso # (Auto) Nucleated RBC % (a uto) Nucleated RBCs # PT INR Fibrinogen Specimen Type Sample Site ABG pH ABG pCO2 ABG pO2 ABG HCO3 ABG O2 Saturation ABG Base Excess Aneudy Test A-a O2 Gradient Hematocrit Hgb O2 Saturation Carboxyhemoglobin Methemoglobin Total Hemoglobin Ionized Calcium O2 Delivery Device FiO2 911 Telecommunicator ID Sodium Potassium Chloride Carbon Dioxide Anion Gap BUN Creatinine GFR Calculation Glucose POC Glucose 174 Estimat Average Gl ucose Hemoglobin A1c Calculated Osmolal ity Lactic Acid Lactic Acid (Sepsi s) Calcium Phosphorus Magnesium Total Bilirubin AST ALT Alkaline Phosphata se Troponin T Baselin e Troponin T 120 Min [place] 51.76 H Delta Troponin T 1.76 Troponin T Hi Sens 6Hr 57.27 H Troponin T Hi Sens 6Hr Delta 7.27 C-Reactive Protein NT-Pro-B Natriuret Pep Total Protein Albumin Globulin Triglycerides Cholesterol LDL Cholesterol, C alc HDL Cholesterol LDL/HDL Ratio Cholesterol/HDL Ra peterson Procalcitonin TSH Influenza Type A A g Influenza Type B A g SARS-CoV-2 Ag (Rap id) Blood Type Rho(D) Type Antibody Screen Crossmatch 10/31/20 10/31/20 10/31/20 18:15 18:15 18:15 WBC RBC Hgb Hct MCV MCH MCHC RDW Plt Count MPV Neut % (Auto) Lymph % (Auto) [place] % (Auto) Eos % (Auto) Baso % (Auto) Neut # (Auto) Lymph # (Auto) [place] # (Auto) Eos # (Auto) Baso # (Auto) Nucleated RBC % (a uto) Nucleated RBCs # PT INR Fibrinogen Specimen Type Sample Site ABG pH ABG pCO2 ABG pO2 ABG HCO3 ABG O2 Saturation ABG Base Excess Aneudy Test A-a O2 Gradient Hematocrit Hgb O2 Saturation Carboxyhemoglobin Methemoglobin Total Hemoglobin Ionized Calcium O2 Delivery Device FiO2 911 Telecommunicator ID Sodium Potassium Chloride Carbon Dioxide Anion Gap BUN Creatinine GFR Calculation Glucose POC Glucose Estimat Average Gl ucose Hemoglobin A1c Calculated Osmolal ity Lactic Acid Lactic Acid (Sepsi s) Calcium Phosphorus Magnesium Total Bilirubin AST ALT Alkaline Phosphata se Troponin T Baselin e 50 H Troponin T 120 Min [place] Delta Troponin T Troponin T Hi Sens 6Hr Troponin T Hi Sens 6Hr Delta C-Reactive Protein 19.7 H NT-Pro-B Natriuret Pep Total Protein Albumin Globulin Triglycerides Cholesterol LDL Cholesterol, C alc HDL Cholesterol LDL/HDL Ratio Cholesterol/HDL Ra peters[place] Procalcitonin 0.16 TSH Influenza Type A A g Influenza Type B A g SARS-CoV-2 Ag (Rap id) Blood Type Rho(D) Type Antibody Screen Crossmatch 10/31/20 10/31/20 10/31/20 15:54 15:33 11:56 WBC RBC Hgb Hct MCV MCH MCHC RDW Plt Count MPV Neut % (Auto) Lymph % (Auto) [place] % (Auto) Eos % (Auto) Baso % (Auto) Neut # (Auto) Lymph # (Auto) [place] # (Auto) Eos # (Auto) Baso # (Auto) Nucleated RBC % (a uto) Nucleated RBCs # PT INR Fibrinogen Specimen Type Sample Site ABG pH ABG pCO2 ABG pO2 ABG HCO3 ABG O2 Saturation ABG Base Excess Aneudy Test A-a O2 Gradient Hematocrit Hgb O2 Saturation Carboxyhemoglobin Methemoglobin Total Hemoglobin Ionized Calcium O2 Delivery Device FiO2 911 Telecommunicator ID Sodium Potassium Chloride Carbon Dioxide Anion Gap BUN Creatinine GFR Calculation Glucose POC Glucose 237 Estimat Average Gl ucose Hemoglobin A1c Calculated Osmolal ity Lactic Acid Lactic Acid (Sepsi s) 1.9 Calcium Phosphorus Magnesium Total Bilirubin AST ALT Alkaline Phosphata se Troponin T Baselin e Troponin T 120 Min [place] Delta Troponin T Troponin T Hi Sens 6Hr Troponin T Hi Sens 6Hr Delta C-Reactive Protein NT-Pro-B Natriuret Pep Total Protein Albumin Globulin Triglycerides Cholesterol LDL Cholesterol, C alc HDL Cholesterol LDL/HDL Ratio Cholesterol/HDL Ra peters[place] Procalcitonin TSH Influenza Type A A g Influenza Type B A g SARS-CoV-2 Ag (Rap id) Negative Blood Type Rho(D) Type Antibody Screen Crossmatch 10/31/20 10/31/20 10/31/20 11:56 11:56 11:56 WBC RBC Hgb Hct MCV MCH MCHC RDW Plt Count MPV Neut % (Auto) Lymph % (Auto) [place] % (Auto) Eos % (Auto) Baso % (Auto) Neut # (Auto) Lymph # (Auto) [place] # (Auto) Eos # (Auto) Baso # (Auto) Nucleated RBC % (a uto) Nucleated RBCs # PT INR Fibrinogen Specimen Type Sample Site ABG pH ABG pCO2 ABG pO2 ABG HCO3 ABG O2 Saturation ABG Base Excess Aneudy Test A-a O2 Gradient Hematocrit Hgb O2 Saturation Carboxyhemoglobin Methemoglobin Total Hemoglobin Ionized Calcium O2 Delivery Device FiO2 911 Telecommunicator ID Sodium 140 Potassium 4.5 Chloride 93 L Carbon Dioxide 38 H Anion Gap 13.5 BUN 46 H Creatinine 1.2 H GFR Calculation Not Reportable Glucose 341 H POC Glucose Estimat Average Gl ucose Hemoglobin A1c Calculated Osmolal ity 315 H Lactic Acid 2.9 H Lactic Acid (Sepsi s) Calcium 10.6 H Phosphorus Magnesium Total Bilirubin 0.7 AST 29 ALT 33 Alkaline Phosphata se 96 Troponin T Baselin e Troponin T 120 Min [place] Delta Troponin T Troponin T Hi Sens 6Hr Troponin T Hi Sens 6Hr Delta C-Reactive Protein 17.5 H NT-Pro-B Natriuret Pep 7129 H Total Protein 6.7 Albumin 4.0 Globulin 2.7 Triglycerides Cholesterol LDL Cholesterol, C alc HDL Cholesterol LDL/HDL Ratio Cholesterol/HDL Ra peterson Procalcitonin TSH Influenza Type A A g Negative Influenza Type B A g Negative SARS-CoV-2 Ag (Rap id) Blood Type Rho(D) Type Antibody Screen Crossmatch 10/31/20 10/31/20 10/31/20 11:56 11:56 11:28 WBC 16.3 H RBC 4.71 Hgb 14.1 Hct 46.6 MCV 98.9 MCH 29.9 MCHC 30.3 RDW 15.8 H Plt Count 362 MPV 10.3 Neut % (Auto) 82.7 Lymph % (Auto) 6.1 [place] % (Auto) 9.8 Eos % (Auto) 0.1 Baso % (Auto) 0.5 Neut # (Auto) 13.50 H Lymph # (Auto) 1.0 [place] # (Auto) 1.6 H Eos # (Auto) 0.0 Baso # (Auto) 0.1 Nucleated RBC % (a uto) 0 Nucleated RBCs # 0.0 PT 14.30 INR 1.07 Fibrinogen 375 Specimen Type Arterial Sample Site Radial,right ABG pH 7.32 L ABG pCO2 68.5 H* ABG pO2 72.3 L ABG HCO3 35.5 H ABG O2 Saturation ABG Base Excess 6.8 H Aneudy Test Pos A-a O2 Gradient Hematocrit 44.2 Hgb O2 Saturation Carboxyhemoglobin Methemoglobin Total Hemoglobin Ionized Calcium O2 Delivery Device Nc FiO2 36.0 911 Telecommunicator ID Ed Sodium Potassium Chloride Carbon Dioxide Anion Gap BUN Creatinine GFR Calculation Glucose POC Glucose Estimat Average Gl ucose Hemoglobin A1c Calculated Osmolal ity Lactic Acid Lactic Acid (Sepsi s) Calcium Phosphorus Magnesium Total Bilirubin AST ALT Alkaline Phosphata se Troponin T Baselin e Troponin T 120 Min [place] Delta Troponin T Troponin T Hi Sens 6Hr Troponin T Hi Sens 6Hr Delta C-Reactive Protein NT-Pro-B Natriuret Pep Total Protein Albumin Globulin Triglycerides Cholesterol LDL Cholesterol, C alc HDL Cholesterol LDL/HDL Ratio Cholesterol/HDL Ra peterson Procalcitonin TSH Influenza Type A A g Influenza Type B A g SARS-CoV-2 Ag (Rap id) Blood Type Rho(D) Type Antibody Screen Crossmatch Vitals: Last Vital Signs Temp 99.3 F 11/01/20 11:34 Pulse 98 11/01/20 11:34 Resp 26 H 11/01/20 11:34 BP 88/57 11/01/20 11:34 Pulse Ox 96 11/01/20 11:34 TS Medications Medications Home Medications Stool Softener 2 cap PO BID 08/13/20 [History Confirmed 10/31/20] acetaminophen [Tylenol Extra Strength] 500 - 1,000 mg PO PRN 08/13/20 [History Confirmed 10/31/20] aspirin 81 mg PO DAILY 08/13/20 [History Confirmed 10/31/20] ratnkdy-jzrhmkjux-ewpo 1 tab PO DAILY 08/13/20 [History Confirmed 10/31/20] chlorthalidone 25 mg PO DAILY 08/13/20 [History Confirmed 10/31/20] cholecalciferol (vitamin D3) [Vitamin D3] 25 mcg PO DAILY 08/13/20 [History Confirmed 10/31/20] cyanocobalamin (vitamin B-12) [Vitamin B-12] 1,000 mcg PO DAILY 08/13/20 [History Confirmed 10/31/20] diphenhydramine HCl [Benadryl] See Rx Instructions .ROUTE .COMPLEX 08/13/20 [History Confirmed 10/31/20] doxycycline hyclate 100 mg PO DAILY 08/13/20 [History Confirmed 10/31/20] furosemide 40 mg PO DAILY #3 tab 08/13/20 [Rx Confirmed 10/31/20] losartan 100 mg PO DAILY 08/13/20 [History Confirmed 10/31/20] metformin 500 mg PO QPM 08/13/20 [History Confirmed 10/31/20] metoprolol succinate 50 mg PO DAILY 08/13/20 [History Confirmed 10/31/20] multivitamin [Multiple Vitamins] 1 tab PO DAILY 08/13/20 [History Confirmed 10/31/20] nitroglycerin [Nitrostat] 0.4 mg SUBLINGUAL Q5M PRN 08/13/20 [History Confirmed 10/31/20] oxybutynin chloride 5 mg PO QID 08/13/20 [History Confirmed 10/31/20] potassium chloride 10 meq PO BID 08/13/20 [History Confirmed 10/31/20] ibuprofen 800 mg PO TID 10/31/20 [History Confirmed 10/31/20] Active Medications Acetaminophen (Acetaminophen 325 Mg Tablet) 650 mg PO Q6H PRN PRN Reason: Mild/Mod Pain Or Temp >/= 101 Atorvastatin Calcium (Atorvastatin 40 Mg Tablet) 40 mg PO BEDTIME [facility] Last Admin: 10/31/20 20:18 Dose: 40 mg Documented by: Cyanocobalamin (Cyanocobalamin 1,000 Mcg Tablet) 1,000 mcg PO DAILY [facility] Last Admin: 11/01/20 09:15 Dose: 1,000 mcg Documented by: Dextrose (Dextrose 50% Syringe 50 Ml) 25 ml IVP ONCE PRN; Protocol PRN Reason: hypoglycemia protocol Dextrose (Dextrose 50% Syringe 50 Ml) 50 ml IVP PRN PRN; Protocol PRN Reason: hypoglycemia protocol Furosemide (Furosemide 10 Mg/Ml Sdv 4ml) 40 mg IVP Q12H [facility] Last Admin: 11/01/20 06:58 Dose: Not Given Documented by: Glucagon (Glucagon 1 Mg/Ml Inj 1 Ml) 1 mg IM ONCE PRN; Protocol PRN Reason: Adult Acute Hypoglycemia Prot. Dextrose (D5w) 500 mls @ 100 mls/hr IV ONCE PRN; Protocol PRN Reason: Adult Acute Hypoglycemia Prot Norepinephrine Bitartrate 4 mg (/ Dextrose) 254 mls @ 0 mls/hr IV .Q0M [facility]; Protocol Last Admin: 11/01/20 11:12 Dose: 20 mcg/min, 76.2 mls/hr Documented by: Pantoprazole Sodium 40 mg/ (Sodium Chloride) 100 mls @ 20 mls/hr IV .Q5H [facility] Last Admin: 11/01/20 11:07 Dose: 8 mg/hr, 20 mls/hr Documented by: Vasopressin 100 unit/ Sodium (Chloride) 100 mls @ 0 mls/hr IV .Q0M [facility]; Protocol Last Admin: 11/01/20 11:07 Dose: 0.01 unit/min, 0.6 mls/hr Documented by: Insulin Aspart (Insulin Aspart 100 Unit/1 Ml) 0 unit SUBCUT TIDWM [facility]; Protocol Last Admin: 11/01/20 11:14 Dose: 8 unit Documented by: Losartan Potassium (Losartan 50 Mg Tablet) 100 mg PO DAILY [facility] Last Admin: 11/01/20 09:15 Dose: Not Given Documented by: Magnesium Hydroxide (Magnesium Hydroxide 30 Ml Udc) 30 ml PO DAILY PRN PRN Reason: CONSTIPA Metoprolol Succinate (Metoprolol Succinate Er (24 Hr) 50 Mg Tablet) 50 mg PO DAILY [facility] Multivitamins Therapeutic (Multivitamin Therapeutic Tablet) 1 tab PO DAILY [facility] Last Admin: 11/01/20 09:15 Dose: 1 tab Documented by: Naloxone HCl (Naloxone 0.4 Mg/Ml Sdv) 0.1 mg IVP Q2M PRN PRN Reason: OPIATERV Nitroglycerin (Nitroglycerin 0.4 Mg Sublingual Tablet) 0.4 mg SUBLINGUAL Q5M PRN PRN Reason: Chest Pain Non-Formulary Medication (Dshkyfi-Zrxfskmps-Xepd) 1 tab PO DAILY [facility] Ondansetron HCl (Ondansetron 2 Mg/Ml Sdv 2 Ml) 4 mg IVP Q8H PRN PRN Reason: vomiting, or N/V if npo Last Admin: 11/01/20 04:31 Dose: 4 mg Documented by: Oxybutynin Chloride (Oxybutynin 5 Mg Tablet) 5 mg PO QID [facility] Last Admin: 10/31/20 20:19 Dose: Not Given Documented by: Pantoprazole Sodium (Pantoprazole Dr 40 Mg Tablet) 40 mg PO DAILY [facility] Last Admin: 11/01/20 09:15 Dose: 40 mg Documented by: Potassium Chloride (Potassium Chloride Er 10 Meq Tablet) 10 meq PO BID [facility] Last Admin: 10/31/20 18:11 Dose: 10 meq Documented by: [facility]ucralfate ([facility] 1 Gm [facility]) [facility] D (Cholecalciferol (Vitamin D3) 1,000 Unit Tablet) 1,000 unit PO DAILY [facility] Last Admin: 11/01/20 09:14 Dose: 1,000 unit Documented by: Discharge Plan Discharge Patient Disposition: Transfer to ED Condition: Stable Prescriptions: No Action multivitamin [Multiple Vitamins] Tablet 1 tab PO DAILY RF: 0 cyanocobalamin (vitamin B-12) [Vitamin B-12] 1,000 mcg Tablet 1,000 mcg PO DAILY RF: 0 aspirin 81 mg Tablet,Delayed Release (Dr/Ec) 81 mg PO DAILY RF: 0 acetaminophen [Tylenol Extra Strength] 500 mg Tablet 500 - 1,000 mg PO PRN RF: 0 diphenhydramine HCl [Benadryl] 25 mg Capsule See Rx Instructions .ROUTE .COMPLEX RF: 0 nitroglycerin [Nitrostat] 0.4 mg Tablet, Sublingual 0.4 mg SUBLINGUAL Q5M PRN (Reason: Chest Pain) RF: 0 cholecalciferol (vitamin D3) [Vitamin D3] 25 mcg (1,000 unit) Tablet 25 mcg PO DAILY RF: 0 Stool Softener 2 cap PO BID RF: 0 [id number]-[id number] 1 tab PO DAILY RF: 0 metformin 500 mg tablet 500 mg PO QPM RF: 0 doxycycline hyclate 100 mg capsule 100 mg PO DAILY RF: 0 Hold Instructions: Resume on 08/24/20. hold while taking Keflex metoprolol succinate 50 mg tablet extended release 24 hr 50 mg PO DAILY RF: 0 potassium chloride 10 mEq tablet extended release 10 meq PO BID RF: 0 chlorthalidone 25 mg tablet 25 mg PO DAILY RF: 0 oxybutynin chloride 5 mg tablet 5 mg PO QID RF: 0 losartan 100 mg tablet 100 mg PO DAILY RF: 0 furosemide 40 mg tablet 40 mg PO DAILY Qty: 3 RF: 0 ibuprofen 800 mg tablet 800 mg PO TID RF: 0 Transfer Attestations Time Spent in Transfer Care*: less than 30 min Quality Metrics Clinical Quality Measures: During this hospital stay, did patient experience: None Coding Level of Care Code Acute Meeting Specialist for Chg Fwd Exam Comprehensive Diagnoses Acute hypercapnic respiratory failure J96.02 Bilateral pulmonary embolism I26.99 CHF exacerbation I50.9 Heart failure type: unspecified History of heart failure Z86.79 History of hyperlipidemia Z86.39 History of hypertension Z86.79 History of hypothyroidism Z86.39 Acute kidney injury N17.9
--- NOTE | 2020-11-01 14:46 | PC.NURSE ---
Rright triple lumen IJ was placed by anesthiaologist Dr. Sumner. No complications. Patient blood pressure continued to decrease even with levophed and vasopressin so MD ordered for vasopressin to be increased to 0.04 and increase max levophed to 30. 4 RBC's were given and 1 FFP. okayd for blood products to be given with pressure bag. I had one FFP left to give patient per MD, but [facility] flight team had arrived to take patient. Lab and MD Morales okay'd for FFP to be given to flight team. 2 sisters were at bedside and got to see mother before departure. I called [facility] and let them know patient was leaving [facility] and on their way.
[2020-11-01 15:04] LABS: ABG PH Result 7.29 (7.35-7.45); Alveolar-Arterial Oxygen Gradi 16.3 mmHg (5-10); Arterial Blood Gas Hematocrit 34.1 % (37-47); Base Excess ABG 4.8 mmol/L (-2.0-2.0); Blood Gas Allen Test Pos; Blood Gas Operator Identificat BD; Blood Gas Sample Site Radial, right; Blood Gas Sample Type Arterial; Carboxyhemoglobin 1.4 %THgb (0.4-20.1); HCO3 ABG 33.1 mmol/L (22-26); HGB O2 Sat 94.4 % (95-100); Ionized Calcium Level - ABG 1.2 mmol/L (1.1-1.4); Methemoglobin 0.6 % (0.4-1.5); Oxygen Device BIPAP; Oxygen Saturation ABG 96.3; Potassium Level - ABG 3.6 mmol/L (3.5-5.0); Total Hemoglobin 11.1 g/dL (12-16)
[2020-11-01 15:05] LABS: Blood Gas Allen Test Pos; Blood Gas Sample Site Radial, right
[2020-11-01 15:06] LABS: ABG PH Result 7.25 (7.35-7.45); Arterial Blood Gas Hematocrit 33.2 % (37-47); Base Excess ABG 5.1 mmol/L (-2.0-2.0); Blood Gas Allen Test Pos; Blood Gas Operator Identificat BD; Blood Gas Sample Site Radial, right; Blood Gas Sample Type Arterial; Carboxyhemoglobin 1.2 %THgb (0.4-20.1); HCO3 ABG 34.2 mmol/L (22-26); HGB O2 Sat 94.6 % (95-100); Ionized Calcium Level - ABG 1.2 mmol/L (1.1-1.4); Methemoglobin 0.6 % (0.4-1.5); Oxygen Device OXY MASK; Oxygen Saturation ABG 96.4; Potassium Level - ABG 5.3 mmol/L (3.5-5.0); Total Hemoglobin 10.8 g/dL (12-16)
[2020-11-02 11:10] LABS: ABG PCO2 68.9 mmHg (35-45)
[2020-11-02 11:11] LABS: ABG PCO2 77.5 mmHg (35-45)
== END 2020-11-01 14:40 | disposition short-term general hospital (02) | DRG 291 ==
LOC: ER 12:55 → CSU 14:37 → ICU 11-01 07:04
PROVIDERS: Internal Medicine; Admitting Provider Family Medicine; Emergency Provider Emergency Medicine; PCP Nurse Practitioner; Visit Provider Family Medicine
DX: I11.0 Hypertensive heart disease with heart failure (principal); J96.02 Acute respiratory failure with hypercapnia; I26.99 Other pulmonary embolism without acute cor pulmonale; N17.9 Acute kidney failure, unspecified; E66.2 Morbid (severe) obesity with alveolar hypoventilation; Z68.42 Body mass index [BMI] 45.0-49.9, adult; I50.9 Heart failure, unspecified; Z86.79 Personal history of other diseases of the circulatory system; Z86.39 Personal history of other endocrine, nutritional and metabolic disease; E78.5 Hyperlipidemia, unspecified; E11.9 Type 2 diabetes mellitus without complications; E55.9 Vitamin D deficiency, unspecified; E03.9 Hypothyroidism, unspecified; Z79.84 Long term (current) use of oral hypoglycemic drugs
CPT/HCPCS: 12345; 36415; 36416; 36430; 36556; 36600; 51702; 71045; 71275; 80051; 80053; 80061; 82274; 82330; 82803; 82805; 82962; 83036; 83605; 83735; 83880; 84100; 84145; 84443; 84484; 85025; 85384; 85610; 86140; 86850; 86900; 86920; 86927; 87040; 87426; 87804; 93005; 94640; 94660; 94664; 96372; 96375; 99282; C9113; J0456; J1650; J1815; J1940; J2405; J3490; J7030; J7050; P9016; P9017; Q9967